=== PATIENT | female | born 1985 | race Caucasian/White ===

== ENCOUNTER 2024-04-24 14:19 | Emergency (ER) | payer OTHER ==
[2024-04-24] MEDS ORDERED: MORPHINE 4 MG/ML SYR ONE (14:52)
[2024-04-24] MEDS ORDERED: ONDANSETRON 4 MG/2 ML VIAL ONE (14:52)
[2024-04-24] MEDS ORDERED: NA CHLORIDE 0.9% 1,000 ML ONE ×2 (14:52→16:11)
[2024-04-24 15:11] LABS: Absolute Lymphocytes (CBC) 1.4 K/uL (0.7-4.9); Absolute Monocytes 0.4 K/uL (0.1-1.3); Absolute Neutrophil 7.2 K/uL (1.8-8.0); Basophils % 0.5 % (0-1.3); Eosinophils % 0.1 % (0-4.4); Hematocrit 46.5 % (36.0-45.0); Hemoglobin 15.7 g/dL (12.0-15.0); Lymphocytes % 15.2 % (15.3-44.8); MCH 30.9 pg (27.0-35.0); MCHC 33.7 g/dL (32.0-36.0); MCV 91.7 fL (80-100); Neutrophils % 80.2 % (41.7-73.7); Platelets 191 thou/uL (152-406); RBC Red Blood Cell Count 5.08 M/uL (3.86-4.86); Red Cell Distribution Width 14.4 % (12.1-15.2)
[2024-04-24 15:24] LABS: Specific Gravity 1.022 (1.005-1.030)
[2024-04-24 15:25] LABS: Specific Gravity 1.022 (1.005-1.030); Sqamous Epithelial <5 /HPF (None Seen); Urine Bacteria None Seen /HPF (<20); Urine Bilirubin NEGATIVE (Negative); Urine Blood 3+ (OVER) (Negative); Urine Clarity Extremely Turbid (Clear); Urine Color Light-Orange (Yellow); Urine Culture Reflex Order REFLEXED; Urine Glucose 4+ (Over) (Negative); Urine Ketones NEGATIVE (Negative); Urine Microscopic Reflex YN ORDER UMIC; Urine Nitrite 2+ (Negative); Urine Protein 4+ (Over) (Negative); Urine RBC >50 /HPF (None Seen); Urine Urobilinogen Normal (Normal); Urine WBC >50 /HPF (<5); Urine WBC Clump Many /HPF (None Seen)
[2024-04-24 15:42] LABS: Albumin 3.1 g/dL (3.4-5.0); Albumin/Globulin Ratio 0.7 (1.1-1.8); Anion Gap 10.5 mEq/L (5.0-15.0); Bilirubin Total 0.7 mg/dL (0.2-1.0); Globulin 4.2 g/dL (2.3-3.5); Potassium 3.5 mEq/L (3.5-5.1); Protein, Total 7.3 g/dL (6.4-8.2)
[2024-04-24] MEDS ORDERED: CEFTRIAXONE 1000 MG/VIAL ONE (16:11)
--- NOTE | 2024-04-24 16:40 | RAD REPORT ---
EXAM DESCRIPTION: CTAbdomen Pelvis W Contrast - 04/24/2024 4:29 pm CLINICAL HISTORY: Abdominal pain. ABD PAIN COMPARISON: <Comparisons> TECHNIQUE: Biphasic CT imaging of the abdomen and pelvis was performed with 100 ml non-ionic IV cont rast. All CT scans are performed using dose optimization technique as appropriate and may include automated exposure control or mA/KV adjustment according to patient size. FINDINGS: The lung bases are clear. The liver is mildly prominent in size with diffuse fatty infiltration. Spleen, pancreas, adrenal glan ds and right kidney are within normal limits. Mild hydronephrosis is seen on the left. No bowel obstruction, free air, free fluid or abscess. The appendix is normal. No evidence of signi ficant lymphadenopathy. No suspicious bony findings. The left ovary appears is enlarged up to 7 cm with multiple cystic structures. IMPRESSION: Enlarged left ovary containing multiple cystic structures. Pelvic ultrasound follow-up i s recommended. This ovarian finding appears to be causing mild left hydronephrosis and hydroureter. Diffuse fatty liver.
[2024-04-24] MEDS ORDERED: KETOROLAC 30 MG/ML INJ ONE (17:16)
[2024-04-24] MEDS ORDERED: INSULIN REGULAR (HUMAN) 100 UNIT/ML ONE (17:17)
--- NOTE | 2024-04-24 17:44 | RAD REPORT ---
EXAM DESCRIPTION: US - Transvaginal Study Probe - 04/24/2024 5:26 pm CLINICAL HISTORY: ABD PAIN Pelvic pain. COMPARISON: <Comparisons> FINDINGS: The uterus is normal in size, shape and echotexture. The uterus measures 6.0 x 3.5 cm The endometrial stripe measures 9 mm, normal. Prior right oophorectomy. The left ovary measures 5.8 x 6.7 x 5.0 cm. Hemorrhagic cysts are present i n the left ovary in totality measuring 4.6 x 4.4 cm. No adnexal masses. Normal Doppler blood flow was demonstrated to the left ovary. No significant pelvic ascites. IMPRESSION: Hemorrhagic cystic lesion left ovary measuring 4.6 cm.Follow-up pelvic ultrasound in 4-6 weeks recommended. No evidence of torsion.
--- NOTE | 2024-04-24 18:50 | EDPHYS ---
Physician Documentation [facility] Name: Mary Bowden Age: 38 yrs Sex: Female : 1985 Arrival Date: 04/24/2024 Time: 14:19 Bed 13 Private MD: ED Physician Vishal Licona HPI: 04/24 14:54 This 38 yrs old Female presents to ER via Ambulatory with complaints of Vomiting. sb4 14:56 The patient presents with abdominal pain in the left lower quadrant. Onset: The sb4 symptoms/episode began/occurred yesterday. The symptoms radiate to pelvis. Associated signs and symptoms: Pertinent positives: nausea, vomiting, and diarrhea. The patient has not experienced similar symptoms in the past. The patient has not recently seen a physician. 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 - Infectious Disease History:: Denies. - Social history:: Smoking status: Patient reports the use of cigarette tobacco products, smokes one-half pack cigarettes per day. ROS: 14:56 Constitutional: Negative for fever, chills, and weight loss, sb4 14:56 Abdomen/GI: Positive for abdominal pain, nausea, vomiting, and diarrhea, 14:56 All other systems are negative, Exam: 14:56 Head/Face: Normocephalic, atraumatic. Eyes: Extra-ocular motions intact. Periorbital sb4 areas with no swelling, redness, or edema. ENT: Mucous membranes moist. Cardiovascular: Regular rate and rhythm with a normal S1 and S2. Respiratory: Lungs have equal breath sounds bilaterally, clear to auscultation and percussion. No rales, rhonchi or wheezes noted. No increased work of breathing, no retractions or nasal flaring. Skin: Warm, dry with normal turgor. Normal color with no rashes, no lesions, and no evidence of cellulitis. MS/ Extremity: Pulses equal, no cyanosis. Neurovascular intact. Full, normal range of motion. 14:56 Constitutional: The patient appears alert, awake, obviously ill, in obvious pain, uncomfortable, 14:56 Abdomen/GI: Inspection: abdomen appears normal, Bowel sounds: normal, Palpation: soft, mild abdominal tenderness, in the left lower quadrant, Vital Signs: 14:43 BP 144 / 96; Pulse 103; Resp 19 S; Temp 98.1(O); Pulse Ox 100% on R/A; Weight 104.33 kg kc6 (R); Height 6 ft. 0 in. (R); Pain 9/10; 16:31 BP 131 / 81; Pulse 98; Resp 17; Pulse Ox 98% on R/A; rs5 17:47 BP 125 / 80; Pulse 94; Resp 17; Pulse Ox 98% on R/A; rs5 18:44 BP 124 / 88; Pulse 93; Resp 17; Temp 98.1; Pulse Ox 98% ; Pain 0/10; bm8 14:43 Body Mass Index 31.19 (104.33 kg, 182.88 cm) kc6 14:43 Pain Scale: Adult kc6 18:44 Pain Scale: Adult bm8 Florina Coma Score: 18:44 Eye Response: spontaneous(4). Motor Response: obeys commands(6). Verbal Response: bm8 oriented(5). Total: 15. MDM: 14:28 Patient medically screened. sb4 17:50 Data reviewed: vital signs, nurses notes, lab test result(s), radiologic studies, and sb4 as a result, I will discharge patient. Care significantly affected by the following chronic conditions: Diabetes. Counseling: I had a detailed discussion with the patient and/or guardian regarding the historical points, exam findings, and any diagnostic results supporting the discharge/admit diagnosis, lab results, radiology results, the need for outpatient follow up, an OB/Gyne specialist, to return to the emergency department if symptoms worsen or persist or if there are any questions or concerns that arise at home. 04/24 14:48 Order name: CBC with Diff; Complete Time: 15:14 sb4 04/24 14:48 Order name: CMP; Complete Time: 15:53 sb4 04/24 14:48 Order name: Lipase; Complete Time: 15:53 sb4 04/24 14:48 Order name: Test, Urine; Complete Time: 15:25 sb4 04/24 14:48 Order name: Urinalysis w/ reflexes; Complete Time: 15:26 sb4 04/24 15:28 Order name: Urine Culture EDTN 04/24 17:51 Order name: Glucose, Ancillary Testing; Complete Time: 17:53 [facility] 04/24 14:48 Order name: CT Abd/Pelvis - IV Contrast Only; Complete Time: 16:41 sb4 04/24 16:42 Order name: Transvaginal Study (probe); Complete Time: 17:45 [facility] 04/24 14:48 Order name: IV Saline Lock; Complete Time: 15:00 sb4 04/24 14:48 Order name: Labs collected and sent; Complete Time: 15:00 sb4 Administered Medications: 15:00 Drug: NS 0.9% IV 1000 ml IV at 1 bolus Per protocol; 1000 mL bolus Route: IV; Rate: 1 kc6 bolus; Site: right antecubital; 15:30 Follow up: Response: No adverse reaction; IV Status: Completed infusion; IV Intake: kc6 1000ml 15:00 Drug: Ondansetron IVP 4 mg IVP once; over 2 minutes Route: IVP; Site: right antecubital;kc6 15:30 Follow up: Response: No adverse reaction; Nausea is decreased; Vomiting decreased kc6 15:00 Drug: morphine IVP or IV 4 mg IVP once over 4 mins Route: IVP; Infused Over: 4 mins; kc6 Site: right antecubital; 15:30 Follow up: Response: No adverse reaction; Pain is decreased; RASS: Alert and Calm (0) kc6 16:00 Drug: NS 0.9% IV 1000 ml IV at 1 bolus Per protocol; 1000 mL bolus Route: IV; Rate: 1 rs5 bolus; Site: right antecubital; 18:35 Follow up: Response: No adverse reaction; IV Status: Completed infusion; IV Intake: bm8 1000ml 16:00 Drug: Rocephin IV 1 grams IV at calculated rate once; Given slow IV push per pharmacy rs5 instructions Route: IV; Rate: calculated rate; Site: right antecubital; 18:35 Follow up: Response: No adverse reaction; IV Status: Completed infusion; IV Intake: [id number] 17:20 Drug: Ketorolac IVP 30 mg IVP once Route: IVP; Site: left antecubital; rs5 18:35 Follow up: Response: No adverse reaction bm8 17:47 Not Given (Physician Discretion): insulin regular human10 units IVP once rs5 Disposition: 20:06 Co-signature as Attending Physician, Vishal Licona MD I reviewed the patient's care rt provided by the Advanced Practice Provider and agree with the diagnosis and treatment plan. Disposition Summary: 04/24/24 18:49 Discharge Ordered Notes: Location: Home sb4 Problem: new sb4 Symptoms: have improved sb4 Condition: Stable sb4 Diagnosis - Hemorrhagic ovarian cyst, left sb4 - UTI/ Urinary tract infection, site not specified sb4 - Type 2 diabetes mellitus with hyperglycemia sb4 Followup: sb4 - With: Lizzie Arshad MD - When: 1 week - Reason: Recheck today's complaints, Re-evaluation by your physician Discharge Instructions: - Discharge Summary Sheet sb4 - Urinary Tract Infection, Adult, [id number] sb4 - Ovarian Cyst, [id number] sb4 Forms: - Antibiotic Education sb4 - Prescription Opioid Use sb4 - Patient Portal Instructions sb4 - Leadership Thank You Letter sb4 - Work release form bm8 Prescriptions: - ondansetron 4 mg Oral Tablet,disintegrating - take 1 tablet ORAL route every 6 hours As needed; 12 tablet; Refills: 0, sb4 Product Selection Permitted - Tramadol 50 mg Oral Tablet - take 1 tablet ORAL route every 8 hours as needed; 12 tablet; Refills: 0, sb4 Product Selection Permitted - cefpodoxime 100 mg Oral Tablet - take 1 tablet ORAL route every 12 hours for 10 days take with food; 20 tablet; sb4 Refills: 0, Product Selection Permitted Signatures: Dispatcher [employer] Brielle Baez RN RN [id number] Sonia Galaviz PA-C PASeema sb4 Vishal Licona MD MD rt Dima Roy RN RN rs5 Luis Fernando Adkins RN bm8
--- NOTE | 2024-04-24 18:50 | ER ---
Nurse's Notes [facility] Name: Mary Bowden Age: 38 yrs Sex: Female : 1985 Arrival Date: 04/24/2024 Time: 14:19 Bed 13 Private MD: Diagnosis: Hemorrhagic ovarian cyst, left;UTI/ Urinary tract infection, site not specified;Type 2 diabetes mellitus with hyperglycemia Presentation: 04/24 14:43 Chief complaint: Patient states: abd pain that radiates to her pelvis since last night kc6 with n/v that started this AM at 0700. Coronavirus screen: At this time, the client does not indicate any symptoms associated with coronavirus-19. Ebola Screen: No symptoms or risks identified at this time. Initial Sepsis Screen: Does the patient meet any 2 criteria? HR > 90 bpm. Does the patient have a suspected source of infection? No. Patient's initial sepsis screen is negative. Risk Assessment: Do you want to hurt yourself or someone else? Patient reports no desire to harm self or others. Onset of symptoms was April 23, 2024. 14:43 Method Of Arrival: Ambulatory kc6 14:43 Acuity: KAILEY 3 kc6 Triage Assessment: 14:46 General: Appears in no apparent distress. uncomfortable, well groomed, well developed, kc6 Behavior is cooperative, crying. Pain: Complains of pain in abdomen and pelvis Pain currently is 9 out of 10 on a pain scale. EENT: No signs and/or symptoms were reported regarding the EENT system. Neuro: Level of Consciousness is awake, alert, obeys commands, Oriented to person, place, time, situation, Appropriate for age. Cardiovascular: Capillary refill < 3 seconds. Respiratory: Airway is patent Trachea midline Respiratory effort is even, unlabored, Respiratory pattern is regular, symmetrical. GI: Reports lower abdominal pain, diarrhea, nausea, vomiting. : No signs and/or symptoms were reported regarding the genitourinary system. Derm: No signs and/or symptoms reported regarding the dermatologic system. Skin is intact, is healthy with good turgor, Skin is dry, Skin is pale, Skin temperature is warm. Musculoskeletal: No signs and/or symptoms reported regarding the musculoskeletal system. Circulation, motion, and sensation intact. Capillary refill < 3 seconds, Range of motion: intact in all extremities. 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 - Infectious Disease History:: Denies. - Social history:: Smoking status: Patient reports the use of cigarette tobacco products, smokes one-half pack cigarettes per day. Screenin:55 [facility] ED Fall Risk Assessment (Adult) History of falling in the last 3 months, kc6 including since admission No falls in past 3 months (0 pts) Confusion or Disorientation No (0 pts) Intoxicated or Sedated No (0 pts) Impaired Gait No (0 pts) Mobility Assist Device Used No (0 pt) Altered Elimination No (0 pt) Score/Fall Risk Level 0 - 2 = Low Risk. Abuse screen: Denies threats or abuse. Denies injuries from another. Nutritional screening: No deficits noted. Tuberculosis screening: No symptoms or risk factors identified. Assessment: 14:54 Reassessment: pt placed in chairs in front of main nurses station. kc6 16:09 Reassessment: pt arrived in room. rs5 16:09 General: Appears in no apparent distress. uncomfortable, Behavior is calm, cooperative. rs5 Pain: Complains of pain in abdomen Pain currently is 7 out of 10 on a pain scale. Quality of pain is described as aching, Is continuous. Neuro: Level of Consciousness is awake, alert, obeys commands, Oriented to person, place, time, situation. Cardiovascular: Patient's skin is warm and dry. Respiratory: Airway is patent Respiratory effort is even, unlabored, Respiratory pattern is regular, symmetrical. GI: Abdomen is round non-distended, Abd is soft and non tender X 4 quads. Patient currently denies nausea. : No signs and/or symptoms were reported regarding the genitourinary system. EENT: No signs and/or symptoms were reported regarding the EENT system. Derm: Skin is intact, Skin is pink, warm \T\ dry. Musculoskeletal: Range of motion: intact in all extremities. 16:10 Reassessment: provider notified pt is experiencing pain. rs5 17:46 Reassessment: Patient and/or family updated on plan of care and expected duration. Pain rs5 level reassessed. Patient is alert, oriented x 3, equal unlabored respirations, skin warm/dry/pink. to bedside for blood sugar check and insuline adm. blood sugar results 291, provider notified. instructed to not adm insuline. 17:47 Reassessment: Patient and/or family updated on plan of care and expected duration. Pain rs5 level reassessed. Patient is alert, oriented x 3, equal unlabored respirations, skin warm/dry/pink. 18:44 Reassessment: Patient appears in no apparent distress at this time. Patient and/or bm8 family updated on plan of care and expected duration. Pain level reassessed. Patient is alert, oriented x 3, equal unlabored respirations, skin warm/dry/pink. Patient denies pain at this time. Patient states feeling better. Patient states symptoms have improved. Vital Signs: 14:43 BP 144 / 96; Pulse 103; Resp 19 S; Temp 98.1(O); Pulse Ox 100% on R/A; Weight 104.33 kg kc6 (R); Height 6 ft. 0 in. (R); Pain 9/10; 16:31 BP 131 / 81; Pulse 98; Resp 17; Pulse Ox 98% on R/A; rs5 17:47 BP 125 / 80; Pulse 94; Resp 17; Pulse Ox 98% on R/A; rs5 18:44 BP 124 / 88; Pulse 93; Resp 17; Temp 98.1; Pulse Ox 98% ; Pain 0/10; bm8 14:43 Body Mass Index 31.19 (104.33 kg, 182.88 cm) kc6 14:43 Pain Scale: Adult kc6 18:44 Pain Scale: Adult bm8 Florina Coma Score: 18:44 Eye Response: spontaneous(4). Motor Response: obeys commands(6). Verbal Response: bm8 oriented(5). Total: 15. ED Course: 14:23 Patient arrived in ED. ra3 14:28 Sonia Galaviz [facility]C [facility] sb4 14:28 James Funes MD is Attending Physician. sb4 14:45 Triage completed. kc6 14:45 Arm band placed on. kc6 14:54 Patient has correct armband on for positive identification. Warm blanket given. kc6 14:57 Vishal Licona MD is Attending Physician. sb4 15:00 Assisted to bathroom. kc6 15:00 Initial lab(s) drawn, by me, sent to lab. Inserted saline lock: 20 gauge in right em1 antecubital area, using aseptic technique. Blood collected. Flushed with 10 mL NS. 15:11 Test, Urine Sent. kc6 15:11 Urinalysis w/ reflexes Sent. kc6 15:18 Brielle Jordan, RN is Primary Nurse. kc6 16:30 CT Abd/Pelvis - IV Contrast Only In Process Unspecified. EDMS 16:32 No provider procedures requiring assistance completed. rs5 17:28 Transvaginal Study (probe) In Process Unspecified. EDMS 18:49 Lizzie Arshad MD is Referral Physician. sb4 19:02 Provided Education on: post er care. bm8 19:02 IV discontinued, intact, bleeding controlled, No redness/swelling at site. Pressure bm8 dressing applied. Administered Medications: 15:00 Drug: NS 0.9% IV 1000 ml IV at 1 bolus Per protocol; 1000 mL bolus Route: IV; Rate: 1 kc6 bolus; Site: right antecubital; 15:30 Follow up: Response: No adverse reaction; IV Status: Completed infusion; IV Intake: kc6 1000ml 15:00 Drug: Ondansetron IVP 4 mg IVP once; over 2 minutes Route: IVP; Site: right antecubital;kc6 15:30 Follow up: Response: No adverse reaction; Nausea is decreased; Vomiting decreased kc6 15:00 Drug: morphine IVP or IV 4 mg IVP once over 4 mins Route: IVP; Infused Over: 4 mins; kc6 Site: right antecubital; 15:30 Follow up: Response: No adverse reaction; Pain is decreased; RASS: Alert and Calm (0) kc6 16:00 Drug: NS 0.9% IV 1000 ml IV at 1 bolus Per protocol; 1000 mL bolus Route: IV; Rate: 1 rs5 bolus; Site: right antecubital; 18:35 Follow up: Response: No adverse reaction; IV Status: Completed infusion; IV Intake: bm8 1000ml 16:00 Drug: Rocephin IV 1 grams IV at calculated rate once; Given slow IV push per pharmacy rs5 instructions Route: IV; Rate: calculated rate; Site: right antecubital; 18:35 Follow up: Response: No adverse reaction; IV Status: Completed infusion; IV Intake: [id number] 17:20 Drug: Ketorolac IVP 30 mg IVP once Route: IVP; Site: left antecubital; rs5 18:35 Follow up: Response: No adverse reaction bm8 17:47 Not Given (Physician Discretion): insulin regular human10 units IVP once rs5 Medication: 16:32 VIS not applicable for this client. rs5 Intake: 15:30 IV: 1000ml; Total: 1000ml. kc6 18:35 IV: 50ml; Total: 1050ml. bm8 18:35 IV: 1000ml; Total: 2050ml. bm8 Outcome: 18:49 Discharge ordered by MD. sb4 19:02 Discharged to home ambulatory, bm8 19:02 Condition: stable 19:02 Discharge instructions given to patient, family, Instructed on discharge instructions, follow up and referral plans. medication usage, safety practices, Demonstrated understanding of instructions, follow-up care, medications, Prescriptions given X 3, 19:03 Patient left the ED. bm8 Signatures: Dispatcher [employer] EDMS Kentrell Arroyo em1 Brielle Jordan, RN RN kc6 Sonia Galaviz PASeema PASeema sb4 Dima Roy, RN RN rs5 Daiana Leach ra3 Luis Fernando Adkins RN RN bm8 Corrections: (The following items were deleted from the chart) 14:55 14:54 Pillow given. kc6 kc6
[2024-04-24 19:18] VITALS: TEMP 98.1
[2024-04-24 19:19] VITALS: O2SAT 98
[2024-04-24 19:21] VITALS: BP 124/88
== END 2024-04-24 19:03 | disposition home or self-care (01) ==
LOC: ER 14:19
DX: N83.202 Unspecified ovarian cyst, left side (principal); N39.0 Urinary tract infection, site not specified; E11.65 Type 2 diabetes mellitus with hyperglycemia; F17.210 Nicotine dependence, cigarettes, uncomplicated
CPT/HCPCS: 87088; 85025; 81001; 87086; 36415; 81025; 82947; 87077; 87186; 83690; 80053; 74177; 76830; 99284; Q9967; J2405; J7030 ×2; J0696

== ENCOUNTER 2024-07-24 06:51 | Observation (INO) | payer OTHER ==
--- OUTSIDE RECORDS SUMMARY | 2024-07-24 06:54 | XMS REPORT | Continuity of Care Document ---
Author Name Unknown Address [address] [facility] [address] thconnect Address [address] [facility] [address] [place] [address] Care Team Providers Care [employer] Name Role Phone ESTEBAN ALMONTE Attending Clinician Unavailable DORY SINGH Attending Clinician UnavailCONY Bronson Attending Clinician Unavailab le Payers Payer Name Policy Type Policy Number Effective Date Expirati on Date Source AEMARIA ALEJANDRA CRAWFORD [facility] [employer] 94 ON 9 [id number] 2024 00:00:00 Encounters Start Date/Time End Date/Time Encounter Type Admission Type Attending Clinicians Care Facility Care Department Encounter ID Source 2024-07-15 00:00:00 2024-07-15 00:00:00 Outpatient ESTEBAN ALMONTE [id number] Nasrin Zazueta 2024-07-03 15:00:00 2024-07-03 15:00:00 Outpatient DORY SINGH [id number] Nasrin Zazueta 2024-05-28 16:30:00 2024-05-28 16:30:00 Outpatient CONY LOWRY [id number] Nasrin Zazueta
[2024-07-24] MEDS ORDERED: ASPIRIN 81 MG CHEWABLE TABLET ONE (07:47)
[2024-07-24] MEDS ORDERED: ONDANSETRON 4 MG/2 ML VIAL ONE ×2 (07:47→15:07)
[2024-07-24] MEDS ORDERED: MORPHINE 4 MG/ML SYR ONE (07:48)
[2024-07-24] MEDS ORDERED: FAMOTIDINE 20 MG/2 ML VIAL IV ONE (07:48)
[2024-07-24] MEDS ORDERED: NA CHLORIDE 0.9% 500 ML ONE ×2 (07:48→14:00)
[2024-07-24 07:49] LABS: Absolute Basophils 0.1 K/uL (0-0.5); Absolute Lymphocytes (CBC) 1.7 K/uL (0.7-4.9); Absolute Monocytes 0.3 K/uL (0.1-1.3); Absolute Neutrophil 4.1 K/uL (1.8-8.0); Basophils % 0.9 % (0-1.3); Eosinophils % 0.7 % (0-4.4); Hematocrit 44.4 % (36.0-45.0); Hemoglobin 15.7 g/dL (12.0-15.0); Lymphocytes % 28.2 % (15.3-44.8); MCH 32.1 pg (27.0-35.0); MCHC 35.3 g/dL (32.0-36.0); MCV 90.9 fL (80-100); MPV 7.5 fL (7.6-11.3); Monocytes % 4.6 % (3.3-12.3); Neutrophils % 65.6 % (41.7-73.7); Nucleated Red Blood Cells % 0.1 % (0-0); Platelets 172 thou/uL (152-406); RBC Red Blood Cell Count 4.88 M/uL (3.86-4.86); Red Cell Distribution Width 13.4 % (12.1-15.2)
[2024-07-24 07:55] LABS: PT Prothrombin Time 10.4 SECONDS (9.4-12.5); Protime INR 0.93
--- NOTE | 2024-07-24 08:04 | RAD REPORT ---
EXAMINATION: ONE VIEW CHEST XR CLINICAL INDICATION: Female, 38 years old.,CHEST PAIN TECHNIQUE: Frontal chest projection is submitted. Examination is limited by patient positioning and t echnique. COMPARISON: No prior exam. FINDINGS: The lungs are mildly hypoinflated and clear. No pneumothorax or sizable effusion. The heart is fritz l in size. Mediastinal contours are unremarkable. IMPRESSION: No acute intrathoracic abnormalities.
[2024-07-24 08:15] LABS: ALT/SGPT 36 U/L (13-56); AST/SGOT 28 U/L (15-37); Albumin 2.8 g/dL (3.4-5.0); Albumin/Globulin Ratio 0.7 (1.1-1.8); Alkaline Phosphatase 60 U/L (45-117); Anion Gap 9.9 mEq/L (5.0-15.0); BUN Blood Urea Nitrogen 14 mg/dL (7-18); Bicarbonate 25 mEq/L (21-32); Bilirubin Direct < 0.2 mg/dL (0-0.2); Bilirubin Indirect, Calculated 0.4 mg/dL (0.2-0.8); Bilirubin Total 0.6 mg/dL (0.2-1.0); Glomerular Filtration Rate 83 ml/min (=/>90); Glucose Level 337 mg/dL (74-106); Lipase 187 U/L (13-75); Magnesium 1.4 mg/dL (1.6-2.4); NT PRO-BNP 243 pg/mL (<125); Potassium 3.9 mEq/L (3.5-5.1); Protein, Total 6.8 g/dL (6.4-8.2); Sodium Level 132 mEq/L (136-145); Troponin High Sensitivity 51.9 pg/mL (<58.9)
[2024-07-24 08:32] LABS: Transitional Epithelial <5 /HPF (None Seen); Urine Bacteria <20 /HPF (<20); Urine Bilirubin NEGATIVE (Negative); Urine Blood 1+ (Negative); Urine Clarity Turbid (Clear); Urine Color Light-Yellow (Yellow); Urine Culture Reflex Order NOT NEEDED; Urine Glucose 4+ (Over) (Negative); Urine Granular Casts 0-5 /LPF (None Seen); Urine Ketones NEGATIVE (Negative); Urine Microscopic Reflex YN ORDER UMIC; Urine Mucus Slight /HPF (None Seen); Urine Nitrite NEGATIVE (Negative); Urine Protein 3+ (Negative); Urine RBC <5 /HPF (None Seen); Urine Urobilinogen Normal (Normal); Urine WBC <5 /HPF (<5)
--- NOTE | 2024-07-24 08:50 | ER ---
Nurse's Notes [facility] Name: Mary Bowden Age: 38 yrs Sex: Female : 1985 Arrival Date: 07/24/2024 Time: 06:51 Bed 8 Private MD: Diagnosis: Chest pain, unspecified;Angina pectoris, unspecified;Essential (primary) hypertension;Hypomagnesemia;Tobacco abuse counseling;Tobacco use;Type 2 diabetes mellitus with hyperglycemia Presentation: 07/24 07:00 Chief complaint: Patient states: CHEST PAIN SINCE LAST NIGHT. Coronavirus screen: At ha1 this time, the client does not indicate any symptoms associated with coronavirus-19. Ebola Screen: No symptoms or risks identified at this time. Initial Sepsis Screen: Does the patient meet any 2 criteria? No. Patient's initial sepsis screen is negative. Does the patient have a suspected source of infection? No. Patient's initial sepsis screen is negative. Risk Assessment: Do you want to hurt yourself or someone else? Patient reports no desire to harm self or others. Onset of symptoms was July 24, 2024. 07:00 Method Of Arrival: Ambulatory ha1 07:00 Acuity: KAILEY 2 ha1 Triage Assessment: 06:55 General: Appears uncomfortable, Behavior is cooperative, anxious, crying. Pain: ha1 Complains of pain in chest Pain currently is 10 out of 10 on a pain scale. Quality of pain is described as pressure, throbbing. Neuro: Level of Consciousness is awake, alert, obeys commands, Oriented to person, place, time, situation. Cardiovascular: Reports chest pain, Capillary refill < 3 seconds Patient's skin is warm and dry. Respiratory: Airway is patent Respiratory effort is even, unlabored, Respiratory pattern is regular, symmetrical. Historical: - Allergies: 07:03 No Known Allergies; ha1 - PMHx: 07:03 Myocardial infarction; ha1 - PSHx: 07:03 right ovary removed; Stented artery; ha1 - Immunization history:: Adult Immunizations up to date. - Infectious Disease History:: Denies. - Social history:: Smoking status: Patient reports the use of cigarette tobacco products, smokes one-half pack cigarettes per day. - Family history:: not pertinent. Screenin:10 [facility] ED Fall Risk Assessment (Adult) History of falling in the last 3 months, aa5 including since admission No falls in past 3 months (0 pts) Confusion or Disorientation No (0 pts) Intoxicated or Sedated No (0 pts) Impaired Gait No (0 pts) Mobility Assist Device Used No (0 pt) Altered Elimination No (0 pt) Score/Fall Risk Level 0 - 2 = Low Risk Oriented to surroundings, Maintained a safe environment, Educated pt \T\ family on fall prevention, incl call for assistance when getting out of bed. Abuse screen: Denies threats or abuse. Nutritional screening: No deficits noted. Tuberculosis screening: No symptoms or risk factors identified. Assessment: 07:10 General: Appears comfortable, Behavior is calm, cooperative. Pain: Complains of pain in aa5 mid-sternal area Pain does not radiate. Pain currently is 10 out of 10 on a pain scale. Quality of pain is described as sharp, Pain began this morning Is intermittent. Neuro: Level of Consciousness is awake, alert, obeys commands, Oriented to person, place, time, situation. Cardiovascular: Reports chest pain, Heart tones S1 S2 present Rhythm is sinus rhythm. Respiratory: Airway is patent Respiratory effort is even, unlabored, Respiratory pattern is regular, symmetrical. GI: Abdomen is round non-distended, Abd is soft and non tender X 4 quads. Patient currently denies nausea, vomiting. : No signs and/or symptoms were reported regarding the genitourinary system. EENT: No signs and/or symptoms were reported regarding the EENT system. Derm: Skin is pink, warm \T\ dry. Musculoskeletal: Range of motion: intact in all extremities. 07:48 Reassessment: Pt to restroom ambulatory prior to medication administration. . aa5 07:52 Reassessment: Patient is alert, oriented x 3, equal unlabored respirations, skin aa5 warm/dry/pink. 09:25 Reassessment: Patient is alert, oriented x 3, equal unlabored respirations, skin aa5 warm/dry/pink. Patient states symptoms have not improved. MD notified. . 09:52 Reassessment: Patient is alert, oriented x 3, equal unlabored respirations, skin aa5 warm/dry/pink. 10:43 Reassessment: Patient is alert, oriented x 3, equal unlabored respirations, skin aa5 warm/dry/pink. Vital Signs: 07:00 BP 160 / 108; Pulse 102; Resp 18 S; Temp 97.2(T); Pulse Ox 98% on R/A; Weight 108.86 ha1 kg; Height 6 ft. 1 in. ; Pain 10/10; 08:20 BP 145 / 95; Pulse 94; Resp 18 S; Pulse Ox 97% on R/A; aa5 10:06 BP 127 / 81; Pulse 85; Resp 14 S; Temp 97.9(TE); Pulse Ox 98% on R/A; aa5 07:00 Body Mass Index 31.66 (108.86 kg, 185.42 cm) ha1 07:00 Pain Scale: Adult [facility] ED Course: 06:54 Patient arrived in ED. gm2 07:03 Triage completed. ha1 07:08 Riana Thompson, ABBY is Primary Nurse. aa5 07:09 Nadeem Nye MD is Attending Physician. butch 07:10 Patient has correct armband on for positive identification. Bed in low position. Call aa5 light in reach. Side rails up X2. Client placed on continuous cardiac and pulse oximetry monitoring. NIBP monitoring applied. monitoring manager on. Pulse ox on. NIBP on. 07:10 Arm band placed on. aa5 07:40 Initial lab(s) drawn, by me, sent to lab. Inserted saline lock: 20 gauge in right aa5 antecubital area, using aseptic technique. Blood collected. Flushed with 10 mL NS. 07:50 XRAY Chest (1 view) In Process Unspecified. EDMS 08:00 Urine collected: clean catch specimen, sent to lab. aa5 08:31 No provider procedures requiring assistance completed. aa5 08:31 Patient maintains SpO2 saturation greater than 95% on room air. aa5 08:49 Eron Funes MD is Hospitalizing Provider. butch 10:43 Patient admitted, IV remains in place. aa5 Administered Medications: 07:32 CANCELLED (Duplicate Order): GI Cocktail with - (maaloxsuspension 30 ml, butch lidocaine mucous membrane liquid 2 % 20 ml, phenobarbital-dptnozctwb46 ml) PO once 07:48 Drug: Aspirin PO Chewable Tablet 324 mg PO once; 81 mg tablets x 4 Route: PO; aa5 09:52 Follow up: Response: No adverse reaction aa5 07:50 Drug: morphine IVP or IV 4 mg IVP once over 4 mins Route: IVP; Infused Over: 4 mins; aa5 Site: right antecubital; 08:00 Follow up: Response: No adverse reaction aa5 07:52 Drug: Famotidine IVP 20 mg IVP once; dilute with 10 mL 0.9% NaCl; give over 2 minutes aa5 Route: IVP; Site: right antecubital; 08:00 Follow up: Response: No adverse reaction aa5 07:52 Drug: NS 0.9% IV 500 ml IV at bolus once; to be given as a bolus over 30 minutes Route: aa5 IV; Rate: bolus; Site: right antecubital; 08:22 Follow up: IV Status: Completed infusion; IV Intake: 500ml 07:52 Drug: Ondansetron IVP 4 mg IVP once; over 2 minutes Route: IVP; Site: right antecubital;aa5 08:00 Follow up: Response: No adverse reaction aa5 09:19 CANCELLED (Other Intervention Used): insulin [id number] units Sub-Q once la1 09:25 Drug: Magnesium Sulfate IVPB 1 grams IVPB once over 1 hrs Route: IVPB; Infused Over: 1 aa5 hrs; Site: right antecubital; 10:25 Follow up: Response: No adverse reaction; IV Status: Completed infusion aa5 09:25 Drug: Clopidogrel PO 150 mg PO once Route: PO; aa5 10:25 Follow up: Response: No adverse reaction aa5 09:25 Drug: Enoxaparin Sub-Q 1 mg/kg Sub-Q once {Note: administered 100mg.} Route: Sub-Q; aa5 Site: right lower abdomen; 10:25 Follow up: Response: No adverse reaction aa5 09:25 Drug: Metoprolol PO 50 mg PO once Route: PO; aa5 10:25 Follow up: Response: No adverse reaction aa5 09:52 Drug: Insulin Regular Human IVP 7 units IVP once {Co-Signature: ss (Laurie Braxton aa5 RN).} Route: IVP; Site: right antecubital; 10:25 Follow up: Response: No adverse reaction aa5 09:52 Drug: Nitroglycerin Sublingual 0.4 mg Sublingual once Route: Sublingual; aa5 10:25 Follow up: Response: No adverse reaction aa5 Medication: 08:31 VIS not applicable for this client. aa5 Intake: 08:22 IV: 500ml; Total: 500ml. aa5 Outcome: 08:50 Decision to Hospitalize by Provider. butch 10:43 Admitted to Tele accompanied by tech, via wheelchair, with chart, Other Report was aa5 faxed to admitting nurse. 10:43 Condition: stable 10:43 Instructed on the need for admit, Demonstrated understanding of instructions, 10:43 Patient left the ED. aa5 Signatures: Dispatcher [employer] EDNadeem Quiñonez MD MD cha Calderon, Audri, RN RN aa5 Alondra Smith RN RN ha1 Lizette Ramos 2 Terry Crawford [facility] Laurie Braxton RN ss Corrections: (The following items were deleted from the chart) 10:46 09:25 Reassessment: Patient is alert, oriented x 3, equal unlabored respirations, skin aa5 warm/dry/pink. aa5
--- NOTE | 2024-07-24 08:50 | EDPHYS ---
Physician Documentation [facility] Name: Mary Bowden Age: 38 yrs Sex: Female : 1985 Arrival Date: 07/24/2024 Time: 06:51 Bed 8 Private MD: ED Physician Nadeem Nye HPI: 07/24 07:52 This 38 yrs old Female presents to ER via Ambulatory with complaints of Chest butch Pain. 07:52 The patient or guardian reports chest pain that is located primarily in the substernal butch area. The pain does not radiate. Associated signs and symptoms: Pertinent positives: None. The chest pain is described as sharp. Duration: The patient or guardian reports multiple episodes, that have now resolved. Modifying factors: The symptoms are alleviated by nothing. the symptoms are aggravated by nothing. Severity of pain: At its worst the pain was mild in the emergency department the pain is unchanged. The patient has not experienced similar symptoms in the past. Historical: - Allergies: 07:03 No Known Allergies; ha1 - PMHx: 07:03 Myocardial infarction; ha1 - PSHx: 07:03 right ovary removed; Stented artery; ha1 - Immunization history:: Adult Immunizations up to date. - Infectious Disease History:: Denies. - Social history:: Smoking status: Patient reports the use of cigarette tobacco products, smokes one-half pack cigarettes per day. - Family history:: not pertinent. ROS: 07:52 Constitutional: Negative for fever, chills, and weight loss, Eyes: Negative for injury, butch pain, redness, and discharge, ENT: Negative for injury, pain, and discharge, Neck: Negative for injury, pain, and swelling, Respiratory: Negative for shortness of breath, cough, wheezing, and pleuritic chest pain, Abdomen/GI: Negative for abdominal pain, nausea, vomiting, diarrhea, and constipation, Back: Negative for injury and pain, : Negative for injury, bleeding, discharge, and swelling, MS/Extremity: Negative for injury and deformity, Skin: Negative for injury, rash, and discoloration, Neuro: Negative for headache, weakness, numbness, tingling, and seizure, Psych: Negative for depression, anxiety, suicide ideation, homicidal ideation, and hallucinations, Allergy/Immunology: Negative for hives, rash, and allergies, Endocrine: Negative for neck swelling, polydipsia, polyuria, polyphagia, and marked weight changes, Hematologic/Lymphatic: Negative for swollen nodes, abnormal bleeding, and unusual bruising, 07:52 Cardiovascular: Positive for chest pain, 07:52 MS/extremity: Negative for acute changes, Exam: 07:52 Constitutional: This is a well developed, well nourished patient who is awake, alert, butch and in no acute distress. Head/Face: Normocephalic, atraumatic. Eyes: Pupils equal round and reactive to light, extra-ocular motions intact. Lids and lashes normal. Conjunctiva and sclera are non-icteric and not injected. Cornea within normal limits. Periorbital areas with no swelling, redness, or edema. ENT: Nares patent. No nasal discharge, no septal abnormalities noted. Tympanic membranes are normal and external auditory canals are clear. Oropharynx with no redness, swelling, or masses, exudates, or evidence of obstruction, uvula midline. Mucous membranes moist. Neck: Trachea midline, no thyromegaly or masses palpated, and no cervical lymphadenopathy. Supple, full range of motion without nuchal rigidity, or vertebral point tenderness. No Meningismus. Cardiovascular: Regular rate and rhythm with a normal S1 and S2. No gallops, murmurs, or rubs. Normal PMI, no JVD. No pulse deficits. Respiratory: Lungs have equal breath sounds bilaterally, clear to auscultation and percussion. No rales, rhonchi or wheezes noted. No increased work of breathing, no retractions or nasal flaring. Abdomen/GI: Soft, non-tender, with normal bowel sounds. No distension or tympany. No guarding or rebound. No evidence of tenderness throughout. Back: No spinal tenderness. No costovertebral tenderness. Full range of motion. Skin: Warm, dry with normal turgor. Normal color with no rashes, no lesions, and no evidence of cellulitis. MS/ Extremity: Pulses equal, no cyanosis. Neurovascular intact. Full, normal range of motion. Neuro: Awake and alert, GCS 15, oriented to person, place, time, and situation. Cranial nerves II-XII grossly intact. Motor strength 5/5 in all extremities. Sensory grossly intact. Cerebellar exam normal. Normal gait. Psych: Awake, alert, with orientation to person, place and time. Behavior, mood, and affect are within normal limits. 07:52 Chest/axilla: Inspection: normal, Palpation: tenderness, that is mild, of the mid-sternal area, Axilla: are normal, Breasts: are normal, 07:52 ECG was reviewed by the Attending Physician. Vital Signs: 07:00 BP 160 / 108; Pulse 102; Resp 18 S; Temp 97.2(T); Pulse Ox 98% on R/A; Weight 108.86 ha1 kg; Height 6 ft. 1 in. ; Pain 10/10; 08:20 BP 145 / 95; Pulse 94; Resp 18 S; Pulse Ox 97% on R/A; aa5 10:06 BP 127 / 81; Pulse 85; Resp 14 S; Temp 97.9(TE); Pulse Ox 98% on R/A; aa5 07:00 Body Mass Index 31.66 (108.86 kg, 185.42 cm) ha1 07:00 Pain Scale: Adult ha1 MDM: 07:09 Medical Screening Exam initiated butch 07:57 HEART Score: History: Moderately Suspicious (1), ECG: Non specific repolarization butch disturbance / LBTB / PM (1), Age: < or = 45 years (0), Risk Factors: > or = 3 Risk factors for atherosclerotic disease (2), [Hypercholesterolemia] [Hypertension] [+ Family HX] [Obesity] Troponin: < or = 1 x Normal Limit (0). BEATRICE Risk Score: 1 - Three or more CAD risk factors, 1- Known CAD, 1 - ASA use in past 7 days, 1 - Recent [<24hrs] Severe Angina, TOTAL SCORE = 4. Data reviewed: vital signs, nurses notes, lab test result(s), EKG, radiologic studies, plain films. Consideration of Admission/Observation Escalation of care including admission/observation considered. I considered the following discharge prescriptions or medication management in the emergency department Medications were administered in the Emergency Department. See MAR. Independent interpretation of the following test(s) in the Emergency Department EKG: See my EKG interpretation above. Test considered but Not performed: Ultrasound no 2 d echo. Counseling: I had a detailed discussion with the patient and/or guardian regarding the historical points, exam findings, and any diagnostic results supporting the discharge/admit diagnosis, the presence of at least one elevated blood pressure reading (>120/80) during this emergency department visit, lab results, radiology results, the need for outpatient follow up. 07/24 07:10 Order name: Basic Metabolic Panel; Complete Time: 08:45 [facility] 07/24 07:10 Order name: CBC with Diff; Complete Time: 08:45 [facility] 07/24 07:10 Order name: LFT's; Complete Time: 08:45 [facility] 07/24 07:10 Order name: Magnesium; Complete Time: 08:45 [facility] 07/24 07:10 Order name: NT PRO-BNP; Complete Time: 08:45 [facility] 07/24 07:10 Order name: PT-INR; Complete Time: 08:45 [facility] 07/24 07:10 Order name: Troponin HS; Complete Time: 08:45 [facility] 07/24 07:10 Order name: Lipase; Complete Time: 08:45 [facility] 07/24 07:10 Order name: Urinalysis w/ reflexes; Complete Time: 08:45 [facility] 07/24 07:11 Order name: UDS; Complete Time: 09:17 [facility] 07/24 07:32 Order name: D-Dimer; Complete Time: 09:17 [facility] 07/24 07:48 Order name: Troponin High Sensitivity: 10 am [facility] 07/24 07:10 Order name: XRAY Chest (1 view); Complete Time: 08:45 [facility] 07/24 07:52 Order name: EKG; Complete Time: 07:52 [facility] 07/24 07:10 Order name: Cardiac monitoring; Complete Time: 07:11 [facility] 07/24 07:10 Order name: EKG - Nurse/Tech; Complete Time: 07:44 [facility] 07/24 07:10 Order name: IV Saline Lock; Complete Time: 07:44 [facility] 07/24 07:10 Order name: Labs collected and sent; Complete Time: 07:44 [facility] 07/24 07:10 Order name: O2 Per Protocol; Complete Time: 07:11 [facility] 07/24 07:10 Order name: O2 Sat Monitoring; Complete Time: 07:11 [facility] EC:52 Rate is 85 beats/min. Rhythm is regular. QRS Roggen is Normal. VT interval is normal. QRS butch interval is normal. QT interval is normal. No Q waves. T waves are Normal. Clinical impression: NSR w/ Non-specific ST/T Changes and No evidence of ischemia. Interpreted by me. Reviewed by me. Administered Medications: 07:32 CANCELLED (Duplicate Order): GI Cocktail with - (maaloxsuspension 30 ml, butch lidocaine mucous membrane liquid 2 % 20 ml, phenobarbital-vbkehhykzp02 ml) PO once 07:48 Drug: Aspirin PO Chewable Tablet 324 mg PO once; 81 mg tablets x 4 Route: PO; aa5 09:52 Follow up: Response: No adverse reaction aa5 07:50 Drug: morphine IVP or IV 4 mg IVP once over 4 mins Route: IVP; Infused Over: 4 mins; aa5 Site: right antecubital; 08:00 Follow up: Response: No adverse reaction aa5 07:52 Drug: Famotidine IVP 20 mg IVP once; dilute with 10 mL 0.9% NaCl; give over 2 minutes aa5 Route: IVP; Site: right antecubital; 08:00 Follow up: Response: No adverse reaction aa5 07:52 Drug: NS 0.9% IV 500 ml IV at bolus once; to be given as a bolus over 30 minutes Route: aa5 IV; Rate: bolus; Site: right antecubital; 08:22 Follow up: IV Status: Completed infusion; IV Intake: 500ml aa5 07:52 Drug: Ondansetron IVP 4 mg IVP once; over 2 minutes Route: IVP; Site: right antecubital;aa5 08:00 Follow up: Response: No adverse reaction aa5 09:19 CANCELLED (Other Intervention Used): insulin units Sub-Q once la1 09:25 Drug: Magnesium Sulfate IVPB 1 grams IVPB once over 1 hrs Route: IVPB; Infused Over: 1 aa5 hrs; Site: right antecubital; 10:25 Follow up: Response: No adverse reaction; IV Status: Completed infusion aa5 09:25 Drug: Clopidogrel PO 150 mg PO once Route: PO; aa5 10:25 Follow up: Response: No adverse reaction aa5 09:25 Drug: Enoxaparin Sub-Q 1 mg/kg Sub-Q once {Note: administered 100mg.} Route: Sub-Q; aa5 Site: right lower abdomen; 10:25 Follow up: Response: No adverse reaction aa5 09:25 Drug: Metoprolol PO 50 mg PO once Route: PO; aa5 10:25 Follow up: Response: No adverse reaction aa5 09:52 Drug: Insulin Regular Human IVP 7 units IVP once {Co-Signature: ss (Laurie Braxton aa5 RN).} Route: IVP; Site: right antecubital; 10:25 Follow up: Response: No adverse reaction aa5 09:52 Drug: Nitroglycerin Sublingual 0.4 mg Sublingual once Route: Sublingual; aa5 10:25 Follow up: Response: No adverse reaction aa5 Disposition Summary: 07/24/24 08:50 Hospitalization Ordered Notes: Hospitalization Status: Observation butch Provider: Eron Funes cha Location: Telemetry/MedSurg (observation) butch Condition: Fair butch Problem: new butch Symptoms: have improved butch Bed/Room Type: Standard [facility] Room Assignment: 412(07/24/24 09:10) eb Diagnosis - Chest pain, unspecified butch - Angina pectoris, unspecified butch - Essential (primary) hypertension butch - Hypomagnesemia butch - Tobacco abuse counseling butch - Tobacco use butch - Type 2 diabetes mellitus with hyperglycemia butch Discharge Instructions: - Discharge Summary Sheet butch - Nonspecific Chest Pain, Adult butch - Hypertension, Adult butch - Nonspecific Chest Pain, Adult, [id number] butch - Hypertension, Adult, [id number] butch - How to Take Your Blood Pressure, [id number] butch - Aspirin and Your Heart butch - Managing Your Hypertension butch Forms: - Medication Reconciliation Form butch - SBAR form butch - Leadership Thank You Letter [facility] Prescriptions: - Pepcid 20 mg Oral tablet - take 1 tablet ORAL route every 12 hours for 21 days; 42 tablet; Refills: 0, butch Product Selection Permitted Signatures: Dispatcher [employer] Nadeem Tran MD MD cha Calderon, Audri, RN RN aa5 Terry Crawford, KIRK-C FIELD CASE MANAGER-Cla1 Lauren Calixto Heidy RN RN ha1 Laurie Braxton RN ss Corrections: (The following items were deleted from the chart) 07:10 07:10 BASIC METABOLIC PANEL+C.LAB.BRZ ordered. EDMS EDMS 07:10 07:10 CBC+H.LAB.BRZ ordered. EDMS EDMS 07:10 07:10 HEPATIC FUNCTION+C.LAB.BRZ ordered. EDMS EDMS 07:10 07:10 MAGNESIUM+C.LAB.BRZ ordered. EDMS EDMS 07:10 07:10 PROBNP+C.LAB.BRZ ordered. EDMS EDMS 07:10 07:10 PROTIME (+INR)+COAG.LAB.BRZ ordered. EDMS EDMS 07:10 07:10 Troponin High Sensitivity+C.LAB.BRZ ordered. EDMS EDMS 07:10 07:10 LIPASE+C.LAB.BRZ ordered. EDMS EDMS 07:10 07:10 Urinalysis+U.LAB.BRZ ordered. EDMS EDMS 07:10 07:10 Chest Single View+RAD.RAD.BRZ ordered. EDMS EDMS 07:32 07:26 GI Cocktail with - (Maalox PO 30 ml, Lidocaine Mucous Membrane 2 % 20 butch ml, Phenobarbital-Belladonna PO 10 ml) PO once ordered. [facility] 07:49 07:49 Troponin High Sensitivity+C.LAB.BRZ ordered. EDMS EDMS 09:10 08:50 butch eb 09:19 09:17 Insulin Glargine Sub-Q 30 units Sub-Q once ordered. [facility] la1 09:25 07:52 EKG - Nurse/Tech ordered. [facility] aa5
[2024-07-24 09:09] LABS: Barbiturates NEGATIVE (NEGATIVE); Benzodiazepines NEGATIVE (NEGATIVE); Cocaine NEGATIVE (NEGATIVE); METHAMPHETAM NEGATIVE (NEGATIVE); Methadone NEGATIVE (NEGATIVE); Opiates NEGATIVE (NEGATIVE); Phencyclidine NEGATIVE (NEGATIVE); THC Cannibis NEGATIVE (NEGATIVE)
[2024-07-24] MEDS ORDERED: METOPROLOL TAR 50 MG TAB ONE (09:17)
[2024-07-24] MEDS ORDERED: CLOPIDOGREL 75 MG TABLET ONE ×3 (09:17→15:32)
[2024-07-24] MEDS ORDERED: ENOXAPARIN 100 MG/ML SYR SQ ONE (09:17)
[2024-07-24] MEDS ORDERED: MAGNESIUM SULFATE 1 gm IVPB 1 GM/100 ML BAG IV ONE (09:18)
[2024-07-24] MEDS ORDERED: INSULIN REGULAR (HUMAN) 100 UNIT/ML ONE (09:44)
[2024-07-24] MEDS ORDERED: NITROGLYCERIN 0.4 MG/TAB SL ONE (09:44)
[2024-07-24 11:02] VITALS: BMI 31.6
[2024-07-24] MEDS ORDERED: ONDANSETRON 4 MG/2 ML VIAL IV PRN (11:03)
[2024-07-24] MEDS: INSULIN REGULAR (HUMAN) 100 UNIT/ML SQ SCH (12:10)
[2024-07-24 12:25] LABS: HDL Cholesterol 25 mg/dL (40-60)
[2024-07-24 12:37] LABS: LDL, Direct 38 mg/dL (100-129)
--- NOTE | 2024-07-24 13:31 | P.CNS ---
Date of Consult: 07/24/24 Chief Complaint: chest pain History of Present Illness: Patient with PMH of CAD s/p PCI 1 year ago, presented with chest pain, pressure in nature that started yesterday, mid chest, no radiation, no aggravating or relieving factors. Allergies fluconazole [From Diflucan] Allergy (Verified 07/24/24 11:03) Itching/Hives/Rash Influenza Virus Vaccines Adverse Reaction (Verified 07/24/24 11:03) Shortness of breath Home medications list reviewed: Yes Home Medications: Empagliflozin [Jardiance] 25 mg PO DAILY 07/24/24 RX: Gabapentin 100 mg PO TID 07/24/24 RX: Metoprolol Tartrate 50 mg PO BID 07/24/24 RX: Rosuvastatin Calcium 20 mg PO BEDTIME 07/24/24 - Past Medical/Surgical History Diabetic: Yes -: DM -: HLD -: Neuropathy -: Right Ovary and Fallopin tube removed -: Heart Stent 2022 - Social History Smoking Status: Current every day smoker Alcohol use: No CD- Drugs: No Caffeine use: Yes Place of Residence: Home Review of Systems 10-point ROS is otherwise unremarkable Physical Examination Temp Pulse Resp BP Pulse Ox 98.3 F 85 20 135/89 96 07/24/24 12:00 07/24/24 12:00 07/24/24 12:00 07/24/24 12:00 07/24/24 12:00 General: Alert, In no apparent distress HEENT: Atraumatic, PERRLA, Mucous membr. moist/pink, EOMI, Sclerae nonicteric Neck: Supple, 2+ carotid pulse no bruit, No LAD, Without JVD or thyroid abnormality Respiratory: Clear to auscultation bilaterally, Normal air movement Cardiovascular: Regular rate/rhythm, Normal S1 S2 Gastrointestinal: Normal bowel sounds, No tenderness Musculoskeletal: No tenderness Integumentary: No rashes Neurological: Normal gait, Normal speech, Normal tone, Normal affect Lymphatics: No axilla or inguinal lymphadenopathy Laboratory Data (last 24 hrs) 07/24/24 07/24/24 07/24/24 07:40 07:40 07:40 WBC 6.20 Hgb 15.7 H Hct 44.4 Plt Count 172 PT 10.4 INR 0.93 Sodium 132 L Potassium 3.9 BUN 14 Creatinine 0.92 Glucose 337 H Magnesium 1.4 L Total Bilirubin 0.6 AST 28 ALT 36 Alkaline Phosphatase 60 Lipase 187 H - Problems (1) CAD (coronary artery disease) Current Visit: Yes Status: Acute Plan: with mild leak in troponin and history of PCI Coronary angiogram ASA 81 mg daily for life Lipitor 80 mg daily (2) HTN (hypertension) Current Visit: Yes Status: Acute Plan: continue metoprolol (3) HLD (hyperlipidemia) Current Visit: Yes Status: Acute Plan: very high TG Lipitor 80 mg daily Vascepa 2 gm po BID repeat lipid panel in 4 weeks.
[2024-07-24] MEDS ORDERED: LIDOCAINE 1% 20 ML MDV ONE (13:46)
[2024-07-24] MEDS ORDERED: HEPA 1000U/500MLS 2,000 UNIT/1,000 ML BAG IV ONE (13:46)
[2024-07-24] MEDS ORDERED: HEPARIN 10,000 UNIT/10 ML VIAL IV ONE (13:46)
[2024-07-24] MEDS ORDERED: FENTANYL CITR 100 MCG/2 ML ONE (13:47)
[2024-07-24] MEDS ORDERED: ASPIRIN 325 MG TAB ONE (13:47)
[2024-07-24] MEDS ORDERED: TICAGRELOR 90 MG TABLET PO ONE (13:47)
[2024-07-24] MEDS ORDERED: ATROPINE SULF 1 MG/10 ML SYR IV ONE (13:47)
[2024-07-24] MEDS ORDERED: HEPARIN 5000 UNIT/ML 1 ML VIAL ONE (13:47)
[2024-07-24] MEDS: GABAPENTIN 100 MG CAP PO SCH (14:00)
[2024-07-24] MEDS ORDERED: D10W 125 ML IV PRN (14:04)
[2024-07-24] MEDS ORDERED: GLUCAGON 1 MG/VIAL IM PRN (14:04)
--- NOTE | 2024-07-24 15:54 | P.HP ---
Certification for Inpatient Patient admitted to: Observation With expected LOS: <2 Midnights Patient will require the following post-hospital care: None Practitioner: I am a practitioner with admitting privileges, knowledge of patient current condition, hospital course, and medical plan of care. Services: Services provided to patient in accordance with Admission requirements found in Title 42 Section 412.3 of the Code of Federal Regulations Patient History Date of Service: 07/24/24 Reason for admission: chest pain History of Present Illness: 38-year-old female with history of hyperlipidemia, hypertension, CAD with previous stent to the LAD, dli-xbojjya-vquregdtm diabetes presents the emergency department chief complaint of chest pain. She reports that heart catheterization about 1 year ago when she had a heart attack and a stent was placed in her LAD. She has been having stabbing-like chest pain radiating to the left side of her chest since last night intermittently with no other associated signs or symptoms. She was evaluated in the emergency department initial high- sensitivity troponin was 51.9, repeat trending up to 85.0. Her blood was also lipemic per lab results. Patient to be admitted for further evaluation and management of chest pain. Allergies fluconazole [From Diflucan] Allergy (Verified 07/24/24 11:03) Itching/Hives/Rash Influenza Virus Vaccines Adverse Reaction (Verified 07/24/24 11:03) Shortness of breath Home Medications: Empagliflozin [Jardiance] 25 mg PO DAILY 07/24/24 Gabapentin 100 mg PO TID 07/24/24 Metoprolol Tartrate 50 mg PO BID 07/24/24 Rosuvastatin Calcium 20 mg PO BEDTIME 07/24/24 - Past Medical/Surgical History Has patient received pneumonia vaccine in the past: No Diabetic: Yes -: DM -: HLD -: Neuropathy -: Right Ovary and Fallopin tube removed -: Heart Stent 2022 - Social History Smoking Status: Current every day smoker Alcohol use: No CD- Drugs: No Caffeine use: Yes Place of Residence: Home Review of Systems 10-point ROS is otherwise unremarkable Cardiovascular: Chest Pain Physical Examination - Vital Signs Temperature: 98.3 F Blood Pressure: 132/87 Pulse: 90 Respirations: 16 Pulse Ox (%): 96 - Physical Exam General: Alert, In no apparent distress, Oriented x3 HEENT: Atraumatic, PERRLA, Mucous membr. moist/pink Neck: Supple, 2+ carotid pulse no bruit, No LAD Respiratory: Clear to auscultation bilaterally, Normal air movement Cardiovascular: Regular rate/rhythm, Normal S1 S2 Gastrointestinal: Normal bowel sounds, No tenderness Musculoskeletal: No tenderness Integumentary: No rashes Neurological: Normal speech, Normal strength at 5/5 x4 extr, Normal tone, Normal affect - Studies Laboratory Data (last 24 hrs) 07/24/24 07/24/24 07/24/24 07:40 07:40 07:40 WBC 6.20 Hgb 15.7 H Hct 44.4 Plt Count 172 PT 10.4 INR 0.93 Sodium 132 L Potassium 3.9 BUN 14 Creatinine 0.92 Glucose 337 H Magnesium 1.4 L Total Bilirubin 0.6 AST 28 ALT 36 Alkaline Phosphatase 60 Lipase 187 H Assessment and Plan - Plan Assessment: Chest pain rule out ACShistory of CAD with previous stent Diabetes mellitus type 4aaf-unbzguf-skudgptwv with hyperglycemia Uncontrolled hypertension Dyslipidemia/hypertriglyceridemia Tobacco use disorder Plan: Chest pain rule out ACShistory of CAD with previous stent Received therapeutic Lovenox in ED Troponin trending up Plan for coronary angiogram this afternoon Diabetes mellitus type 9xvs-ohavajv-drburckzd with hyperglycemia ACHS Accu-Chek, sliding scale insulin A1c pending Uncontrolled hypertension Continue metoprolol, titrate as needed Dyslipidemia/hypertriglyceridemia Changed to atorvastatin 80 mg at bedtime, Vascepa 2 g twice daily Tobacco use disorder Counseled on need for cessation DVT PPX: Lovenox Code status: Full Discharge Plan: Home Plan to discharge in: 24 Hours - Advance Directives Does patient have a Living Will: No Does patient have a Durable POA for Healthcare: No - Code Status/Comfort Care Code Status Assessed: Yes (Full code) Critical Care: No Time Spent Managing Pts Care (In Minutes): 54
[2024-07-24] MEDS: ACETAMINOPHEN 325 MG TABLET PO ONE (15:58)
[2024-07-24] MEDS: ACETAMINOPHEN 325 MG TABLET ONE (16:01)
[2024-07-24] MEDS: icosapent ethyL 1 GM CAP PO SCH (17:00)
[2024-07-24] MEDS: CLOPIDOGREL 75 MG TABLET PO ONE (18:00)
[2024-07-24] MEDS: MORPHINE 2 MG/ML SYR IV PRN (20:06)
[2024-07-24] MEDS: METOPROLOL TAR 50 MG TAB PO SCH (20:06)
[2024-07-24] MEDS: ATORVASTATIN 80 MG TAB PO SCH (20:06)
[2024-07-24] MEDS ORDERED: TICAGRELOR 90 MG TABLET PO SCH (21:00)
[2024-07-24] MEDS ORDERED: ATORVASTATIN 40 MG TAB PO SCH (21:00)
[2024-07-24] MEDS: HEPARIN/D5W 25,000 UNIT/500 ML BAG IV SCH (21:44)
[2024-07-25 00:20] VITALS: O2SAT 97
--- NOTE | 2024-07-25 02:31 | OP ---
Date of Procedure: 07/24/2024 Surgeon: Zachary Curiel Procedures Performed: 1.Left heart catheterization. 2.Selective coronary angiogram. 3.Percutaneous transluminal coronary angioplasty of the left anterior descending in-stent restenosis . 4.Percutaneous coronary intervention of the mid left anterior descending with Synergy 3.[address] ug-eluting stent. Indication For Procedures: Icf-ME-pmlvikjtm SC, the patient with history of stent of the LAD, medica tion noncompliance and she was not taking her Brilinta. Access: Right radial, closed by TR band. Sedation Time: 40 minutes with 50 of fentanyl. Complications: None. Estimated Blood Loss: Less than 50 cc. Description Of Procedure: After risks, benefits, and alternatives were explained to the patient, the patient agreed to proceed with the procedure and signed informed consent. 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 Time-out was performed. Sedation was ad ministered. Next, right radial access was obtained using ultrasound-guided micropuncture technique. 5-Kinyarwanda [place] catheter was advanced to the LV cavity. LVEDP was obtained. Pullback did not show a ny gradient. Same catheter was used for selective angiogram of the left and right coronary systems. The catheter was later exchanged for an XB LAD 3.0 mm guide. Heparin was administered. ACT was the rapeutic. Next, Runthrough wire was passed across the LAD stent, pre-dilated the LAD stent with an NC 2.5 and 3.5, and [place] 3.25 mm balloon. Angiogram shows significant distal LAD disease, so we p re-dilated the distal LAD with an NC 2.25 mm balloon. Then, repeat angiogram shows distal edge for t he stent dissection, so it was covered with Synergy 3.0 x 16 mm drug-eluting stent that is overlapped with the proximal LAD stent. Final angiogram shows BEATRICE-3 flow. At the end of procedure, catheter was removed over a J-wire. Sheath was removed. TR band was applied. Hemostasis achieved, and the p atient was moved back to recovery in stable condition. Findings: 1.Left main: Normal. 2.LAD: Ostial to proximal stent 100% occluded. PTCA done. Mid LAD with 70% hazy lesions, PCI done with Synergy 3.0 x 16 mm drug-eluting stent. This overlapped with the proximal LAD stent. Mid mild luminal irregularities and distal diffuse heavy atherosclerosis. 3.Left circumflex with a proximal 50% disease, then continues as large OM1 and OM2. 4.RCA with a proximal 30% disease and then mild luminal irregularities. Assessment And Plan: 1.Significant 100% in-stent restenoses of the left anterior descending stent due to medication nonco mpliance. Percutaneous transluminal coronary angioplasty done. 2.Significant mid left anterior descending disease, status post percutaneous coronary intervention w ith Synergy 3.0 x 16 that is overlapped with old stent. 3.Significant distal left anterior descending disease. Percutaneous transluminal coronary angioplas ty was done. We will continue medical therapy. No option for stenting. 4.Pdvj-nu-rjexbmbq proximal left circumflex disease and mild right coronary artery disease. Outpati ent stress test. Plan: Aspirin 81 mg daily for life, Brilinta 180 x1 was given in the lab[employer] wrecking [employer] salvaging, Plavix 300 to be load ed tonight and then continue Plavix 75 mg daily for 12 months. Continue aggressive medical treatment for CAD. LEELA/MOON Voice ID: [id number] Report ID: [id number]
[2024-07-25 06:38] LABS: Absolute Lymphocytes (CBC) 1.9 K/uL (0.7-4.9); Absolute Monocytes 0.4 K/uL (0.1-1.3); Absolute Neutrophil 4.2 K/uL (1.8-8.0); Basophils % 0.4 % (0-1.3); Eosinophils % 0.7 % (0-4.4); Hematocrit 40.6 % (36.0-45.0); MCH 31.9 pg (27.0-35.0); MCHC 34.6 g/dL (32.0-36.0); MCV 92.1 fL (80-100); MPV 7.8 fL (7.6-11.3); Neutrophils % 63.9 % (41.7-73.7); Nucleated Red Blood Cells % 0.2 % (0-0); Platelets 144 thou/uL (152-406); RBC Red Blood Cell Count 4.41 M/uL (3.86-4.86); Red Cell Distribution Width 13.5 % (12.1-15.2)
[2024-07-25 06:58] LABS: Anion Gap 7.5 mEq/L (5.0-15.0)
[2024-07-25 07:01] LABS: Potassium 3.5 mEq/L (3.5-5.1)
[2024-07-25] MEDS ORDERED: ENOXAPARIN 40 MG/0.4 ML SQ SCH (09:00)
[2024-07-25] MEDS: ASPIRIN EC 81 MG TAB PO SCH (11:07)
[2024-07-25] MEDS: CLOPIDOGREL 75 MG TABLET PO SCH (11:08)
[2024-07-25] MEDS: INSULIN REGULAR (HUMAN) 100 UNIT/ML IV ONE (11:49)
[2024-07-25 12:38] VITALS: BP 125/85; TEMP 98.1
--- NOTE | 2024-07-25 14:41 | P.DS ---
Admission Date: 07/24/24 Discharge Date: 07/25/24 Disposition: ROUTINE DISCHARGE Discharge Condition: GOOD Reason for Admission: chest pain Consultations: Cardiology Procedures: [facility] with PCI/angioplasty Brief History of Present Illness: 38-year-old female with history of hyperlipidemia, hypertension, CAD with previous stent to the LAD, ohi-xovxtal-wirlbgigr diabetes presents the emergency department chief complaint of chest pain. She reports that heart catheterization about 1 year ago when she had a heart attack and a stent was placed in her LAD. She has been having stabbing-like chest pain radiating to the left side of her chest since last night intermittently with no other associated signs or symptoms. She was evaluated in the emergency department initial high-sensi tivity troponin was 51.9, repeat trending up to 85.0. Her blood was also lipemic per lab results. Patient to be admitted for further evaluation and management of chest pain. Hospital Course: Assessment: Chest pain rule out ACShistory of CAD with previous stent Diabetes mellitus type 5ahs-nxithch-fbyaqycez with hyperglycemia Uncontrolled hypertension Dyslipidemia/hypertriglyceridemia Tobacco use disorder Patient was admitted to the hospital for chest pain with elevated troponin. She underwent coronary angiogram and was found to have a occluded stent in her LAD, she underwent angioplasty of the stent that was present and had a new stent placed distally to this. She reports she had not been compliant with the Brilinta as it was too expensive and not covered by her insurance which likely contributed to the stent occlusion. Patient will be switched to Plavix at discharge, counseled to take baby aspirin daily for the rest of her life. Additionally patient was noted to be hyperglycemic on admission to the hospital, her A1c was 10.4. She stated her PCP is working on getting her on Ozempic. She will need further titration of her medications as an outpatient. lipid panel was also obtained, triglycerides were 1811, cholesterol 202, LDL 38, HDL 25. As per recommended by cardiology she was switched to atorvastatin 80 mg at bedtime and Vascepa 2 g twice daily. She will need to follow-up with both her PCP and cardiology outpatient Counseled to stop smoking as well. Vital Signs/Physical Exam: Temp Pulse Resp BP Pulse Ox 98.1 F 103 H 20 125/85 97 07/25/24 12:00 07/25/24 12:00 07/25/24 12:00 07/25/24 12:00 07/25/24 12:00 General: Alert, In no apparent distress, Oriented x3 HEENT: Atraumatic, PERRLA Neck: Supple, JVD not distended Respiratory: Clear to auscultation bilaterally, Normal air movement Cardiovascular: Regular rate/rhythm, Normal S1 S2 Gastrointestinal: Normal bowel sounds, No tenderness Musculoskeletal: No tenderness Integumentary: No rashes Neurological: Normal speech, Normal affect Laboratory Data at Discharge: WBC 6.60 thou/uL (4.3-10.9) 07/25/24 06:26 Hgb 14.0 g/dL (12.0-15.0) D 07/25/24 06:26 Hct 40.6 % (36.0-45.0) 07/25/24 06:26 Plt Count 144 thou/uL (152-406) L 07/25/24 06:26 PT 10.4 SECONDS (9.4-12.5) 07/24/24 07:40 INR 0.93 07/24/24 07:40 APTT 33.9 SECONDS (24.3-36.9) 07/25/24 10:38 Sodium 133 mEq/L (136-145) L 07/25/24 06:26 Potassium 3.5 mEq/L (3.5-5.1) 07/25/24 06:26 BUN 12 mg/dL (7-18) 07/25/24 06:26 Creatinine 0.86 mg/dL (0.55-1.02) 07/25/24 06:26 Glucose 288 mg/dL (74-106) H 07/25/24 06:26 Magnesium 1.4 mg/dL (1.6-2.4) L 07/24/24 07:40 Total Bilirubin 0.6 mg/dL (0.2-1.0) 07/24/24 07:40 AST 28 U/L (15-37) 07/24/24 07:40 ALT 36 U/L (13-56) 07/24/24 07:40 Alkaline Phosphatase 60 U/L (45-117) 07/24/24 07:40 Triglycerides Cancelled 07/24/24 15:44 Cholesterol Cancelled 07/24/24 15:44 LDL Cholesterol Direct 38 mg/dL (100-129) L 07/24/24 10:39 HDL Cholesterol Cancelled 07/24/24 15:44 Cholesterol/HDL Ratio Cancelled 07/24/24 15:44 Lipase 187 U/L (13-75) H 07/24/24 07:40 Home Medications: Empagliflozin [Jardiance] 25 mg PO DAILY 07/24/24 Gabapentin 100 mg PO TID 07/24/24 Metoprolol Tartrate 50 mg PO BID 07/24/24 Atorvastatin Calcium [Lipitor] 80 mg PO BEDTIME #30 tab 07/25/24 Clopidogrel Bisulfate [Plavix*] 75 mg PO DAILY #30 tab 07/25/24 icosapent ethyL [Icosapent Ethyl] 2 gm PO BID #120 cap 07/25/24 New Medications: icosapent ethyL [Icosapent Ethyl] 2 gm PO BID #120 cap Atorvastatin Calcium [Lipitor] 80 mg PO BEDTIME #30 tab Clopidogrel Bisulfate [Plavix*] 75 mg PO DAILY #30 tab Physician Discharge Instructions: Patient was admitted to the hospital for chest pain with elevated troponin. She underwent coronary angiogram and was found to have a occluded stent in her LAD, she underwent angioplasty of the stent that was present and had a new stent placed distally to this. She reports she had not been compliant with the Brilinta as it was too expensive and not covered by her insurance which likely contributed to the stent occlusion. Patient will be switched to Plavix at discharge, counseled to take baby aspirin daily for the rest of her life. Additionally patient was noted to be hyperglycemic on admission to the hospital, her A1c was 10.4. She stated her PCP is working on getting her on Ozempic. She will need further titration of her medications as an outpatient. lipid panel was also obtained, triglycerides were 1811, cholesterol 202, LDL 38, HDL 25. As per recommended by cardiology she was switched to atorvastatin 80 mg at bedtime and Vascepa 2 g twice daily. She will need to follow-up with both her PCP and cardiology outpatient Counseled to stop smoking as well. Diet: AHA Activity: Ad cruz Followup: Lasha Neri DO [Primary Care Provider] - 1 Week Zachary Curiel MD [ACTIVE - CAN ADMIT] - 1-2 Weeks Time spent managing pt's care (in minutes): 40
[2024-07-26] MEDS ORDERED: ENOXAPARIN 40 MG/0.4 ML SQ SCH (09:00)
--- NOTE | 2024-07-27 12:05 | EKG ---
Test Date: 2024-07-24 Test Time: 07:24:19 Biztalk Developer: RAJIV MEASUREMENT RESULTS: Intervals: Rate: 85 RI: 170 QRSD: 98 QT: 356 QTc: 423 [place]: P: 59 RI: 170 QRS: 61 T: 78 INTERPRETIVE STATEMENTS: Normal sinus rhythm Septal infarct, age undetermined Abnormal ECG No previous ECG available for comparison Electronically Signed On 07-27-24 12:02:17 ICE SELLER by Zachary Curiel
== END 2024-07-25 13:14 | disposition home or self-care (01) ==
LOC: ER 06:51 → ERHOLD 09:04 → 4TH 10:01
PROVIDERS: ADMIT Hospitalist; ATTEND Hospitalist
PROC: 027034Z Dilation of Coronary Artery, One Artery with Drug-eluting Intraluminal Device, Percutaneous Approach (ICD-10-PCS; principal; 2024-07-24)
PROC: 4A023N7 Measurement of Cardiac Sampling and Pressure, Left Heart, Percutaneous Approach (ICD-10-PCS; 2024-07-24)
PROC: B2111ZZ Fluoroscopy of Multiple Coronary Arteries using Low Osmolar Contrast (ICD-10-PCS; 2024-07-24)
DX: T82.855A Stenosis of coronary artery stent, initial encounter (principal); I25.82 Chronic total occlusion of coronary artery; I25.10 Atherosclerotic heart disease of native coronary artery without angina pectoris; I10 Essential (primary) hypertension; E78.5 Hyperlipidemia, unspecified; I25.2 Old myocardial infarction; E11.65 Type 2 diabetes mellitus with hyperglycemia; E11.40 Type 2 diabetes mellitus with diabetic neuropathy, unspecified; E78.1 Pure hyperglyceridemia; E83.42 Hypomagnesemia; R79.89 Other specified abnormal findings of blood chemistry; Z91.148 Patient's other noncompliance with medication regimen for other reason; F17.210 Nicotine dependence, cigarettes, uncomplicated; Z71.6 Tobacco abuse counseling; Z79.84 Long term (current) use of oral hypoglycemic drugs; Z79.899 Other long term (current) drug therapy; Z88.7 Allergy status to serum and vaccine; Z88.8 Allergy status to other drugs, medicaments and biological substances
CPT/HCPCS: 96365; 93005; 85025 ×2; 81001; 80048 ×2; 36415 ×2; 83721; 83735; 85610; 80061; 82947 ×5; 85379; 80076; 85730 ×4; 83036; 84484 ×4; 83690; 83880; 80307; 71045; 96375; 96372; 99285; 92928; 93458; J1644; J3475; J1650; J2003; J3010; J2270; J2405 ×2; G0378 ×4; J7040 ×2; J0461

== ENCOUNTER 2024-11-24 11:19 | Emergency (ER) | payer OTHER ==
--- OUTSIDE RECORDS SUMMARY | 2024-11-24 11:22 | XMS REPORT | Continuity of Care Document ---
Author Name Unknown Address [address] [place] [id number] [facility] Address [address] [place] [address] [address] [place] [address] Care Team Providers Care Robot Designer Name Role Phone ESTEBAN ALMONTE Attending Clinician Unavailable DORY SINGH Attending Clinician CONY Pagan Attending Clinician Unavailab mae Payers Payer Name Policy Type Policy Number Effective Date Expirati on Date Source AETNA MP [facility] 5 O PECAN HULLER 94 [place] 9 [id number] 2024 00:00:00 Problems Condition Name Condition Details Condition Category Status Onset Date Resolution Date Last Treatment Date Treating Clinician Comments Source Hyperchole sterolemia Hyperchole sterolemia Problem Active 3-06 00:00: 00 [facility] 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 Problem Active 3-06 00:00: 00 [facility] Pelvic and perineal pain Pelvic and Perineal Pain Problem Active 3-06 00:00: 00 [facility] Cyst of left ovary Cyst of Left Ovary Problem Active 2-12 00:00: 00 [facility] Type 2 diabetes mellitus Type 2 Diabetes Mellitus Problem Active 2-11 00:00: 00 [facility] Mixed hyperlipid emia Mixed Hyperlipid emia Problem Active 2-11 00:00: 00 [facility] History of myocardial infarction History of Myocardial Infarction Problem Active 2-11 00:00: 00 [facility] Social History Smoking Status Start Date Stop Date Source Heavy Tobacco Smoker [facility] Medications Ordered Medication Name Filled Medication Name Start Date Stop Date Current Medication? Ordering Clinician Indication Dosage Frequency Signature (SIG) Comments Components Source atorvastati n 80 mg tablet TAKE 1 TABLET BY MOUTH AT BEDTIME atorvastati n 80 mg tablet TAKE 1 TABLET BY MOUTH AT BEDTIME No atorvastat in 80 mg tablet TAKE 1 TABLET BY MOUTH AT BEDTIME [facility] clopidogrel 75 mg tablet TAKE 1 TABLET BY MOUTH EVERY DAY clopidogrel 75 mg tablet TAKE 1 TABLET BY MOUTH EVERY DAY No clopidogre l 75 mg tablet TAKE 1 TABLET BY MOUTH EVERY DAY [facility] gabapentin 100 mg capsule TAKE 1 CAPSULE (100 MG TOTAL) BY MOUTH IN THE MORNING AND IN THE EVENING gabapentin 100 mg capsule TAKE 1 CAPSULE (100 MG TOTAL) BY MOUTH IN THE MORNING AND IN THE EVENING No gabapentin 100 mg capsule TAKE 1 CAPSULE (100 MG TOTAL) BY MOUTH IN THE MORNING AND IN THE EVENING [facility] icosapent ethyl 1 gram capsule TAKE 2 CAPSULES BY MOUTH TWICE A DAY WITH FOOD SWALLOW WHOLE, DO NOT CHEW, OPEN, DISSOLVE, OR CRUSH icosapent ethyl 1 gram capsule TAKE 2 CAPSULES BY MOUTH TWICE A DAY WITH FOOD SWALLOW WHOLE, DO NOT CHEW, OPEN, DISSOLVE, OR CRUSH No icosapent ethyl 1 gram capsule TAKE 2 CAPSULES BY MOUTH TWICE A DAY WITH FOOD SWALLOW WHOLE, DO NOT CHEW, OPEN, DISSOLVE, OR CRUSH [facility] Jardiance 25 mg tablet TAKE 1 TABLET BY MOUTH EVERY MORNING Jardiance 25 mg tablet TAKE 1 TABLET BY MOUTH EVERY MORNING No Jardiance 25 mg tablet TAKE 1 TABLET BY MOUTH EVERY MORNING [facility] metoprolol tartrate 50 mg tablet TAKE 1 TABLET (50 MG TOTAL) BY MOUTH IN THE MORNING AND IN THE EVENING metoprolol tartrate 50 mg tablet TAKE 1 TABLET (50 MG TOTAL) BY MOUTH IN THE MORNING AND IN THE EVENING No metoprolol tartrate 50 mg tablet TAKE 1 TABLET (50 MG TOTAL) BY MOUTH IN THE MORNING AND IN THE EVENING [facility] Vital Signs Vital Name Observation Time Observation Value Comments S ource BP Diastolic 2024-10-13 00:00:00 82 mm[Hg] [facility] BMI (Body Mass Index) 2024-10-13 00:00:00 32.9 kg/m2 [facility] Height 2024-10-13 00:00:00 71 [in_i] [facility] Body Weight 2024-10-13 00:00:00 236.2 [facility]lb_av[facility] Systolic 2024-10-13 00:00:00 119 mm[Hg] [facility] ia Medical Procedures Procedure Date / Time Performed Performing Clinicia n Source MRI, pelvis, w/wo contrast 2024-11-05 00:00:00 [facility] US TRANSVAGINAL 2024-10-22 00:00:00 [facility] Placement of Stent in Pulmonary Artery 2024-07-03 00:00:00 [facility] Oophorectomy 2001-09-02 00:00:00 [facility] M edical Encounters Start Date/Time End Date/Time Encounter Type Admission Type Attending [facility] Care Department Encounter ID Source 2024-11-05 00:00:00 2024-11-05 00:00:00 CANDIDO CandelariaP: [address], [place] [address] , Ph. [facility] - GC_[email or web address]_Jessica Avendaño* [id number] [facility] 2024-10-22 00:00:00 2024-10-22 00:00:00 Lizzie Arshad MD: [address], [place] [address] , Ph. [facility] GC_[email or web address]_Jessica Avendaño* [id number] [facility] 2024-10-13 00:00:00 2024-10-13 00:00:00 KIRK Artis: [address], [place] [address] , Ph. [facility] GC_[email or web address]_Jessica Avendaño* [id number] [facility] 2024-07-15 00:00:00 2024-07-15 00:00:00 Outpatient ESTEBAN ALMONTE [id number] Nasrin Zazueta 2024-07-03 15:00:00 2024-07-03 15:00:00 Outpatient DORY SINGH [id number] Nasrin Zazueta 2024-05-28 16:30:00 2024-05-28 16:30:00 Outpatient CONY LOWRY [id number] Nasrin Zazueta
[2024-11-24] MEDS ORDERED: methocarbamoL 500 MG TAB ONE (12:26)
[2024-11-24] MEDS ORDERED: ACETAMINOPHEN 500 MG TAB ONE (12:26)
[2024-11-24] MEDS ORDERED: KETOROLAC 30 MG/ML INJ ONE (12:26)
--- NOTE | 2024-11-24 14:26 | ER ---
Nurse's Notes [facility] Name: Mary Bowden Age: 39 yrs Sex: Female : 1985 Arrival Date: 11/24/2024 Time: 11:19 Bed 10 Private MD: Diagnosis: Contusion of right ankle Presentation: 11/24 11:45 Chief complaint: Patient states: dropped a cast iron skillet on her right ankle today iw at work. Coronavirus screen: At this time, the client does not indicate any symptoms associated with coronavirus-19. Risk Assessment: Do you want to hurt yourself or someone else? Patient reports no desire to harm self or others. Onset of symptoms was November 24, 2024. 11:45 Method Of Arrival: Ambulatory iw 11:45 Acuity: KAILEY 4 iw 14:37 Ebola Screen: No symptoms or risks identified at this time. Initial Sepsis Screen: Does bp the patient meet any 2 criteria? No. Patient's initial sepsis screen is negative. Does the patient have a suspected source of infection? No. Patient's initial sepsis screen is negative. Triage Assessment: 14:21 General: Appears in no apparent distress. Behavior is cooperative, appropriate for age, bp anxious. Pain: Complains of pain in right ankle. EENT: No deficits noted. Neuro: No deficits noted. Cardiovascular: No deficits noted. Respiratory: No deficits noted. GI: No signs and/or symptoms were reported involving the gastrointestinal system. : No signs and/or symptoms were reported regarding the genitourinary system. Derm: No deficits noted. Historical: - Allergies: 11:46 tramadol; iw 11:46 Diflucan; iw 11:46 flu vacine; iw - PMHx: 11:46 Myocardial infarction; iw - PSHx: 11:46 right ovary removed; Stented artery; iw - Immunization history:: Adult Immunizations up to date. - Infectious Disease History:: Denies. - Social history:: Smoking status: unknown. Screenin:23 [facility] ED Fall Risk Assessment (Adult) History of falling in the last 3 months, bp including since admission No falls in past 3 months (0 pts) Confusion or Disorientation No (0 pts) Intoxicated or Sedated No (0 pts) Impaired Gait No (0 pts) Mobility Assist Device Used No (0 pt) Altered Elimination No (0 pt) Score/Fall Risk Level 0 - 2 = Low Risk Oriented to surroundings. Abuse screen: Denies threats or abuse. Denies injuries from another. Nutritional screening: No deficits noted. Tuberculosis screening: No symptoms or risk factors identified. Assessment: 11:45 General: Appears uncomfortable, Behavior is cooperative. Pain: Complains of pain in iw right leg and right ankle. Neuro: Level of Consciousness is awake, alert, obeys commands, Oriented to person, place, time, situation, Moves all extremities. Cardiovascular: Patient's skin is warm and dry. Respiratory: Respiratory effort is even, unlabored, Respiratory pattern is regular, symmetrical. Musculoskeletal: Range of motion: limited in right ankle. 12:45 Reassessment: Patient appears in no apparent distress at this time. Patient and/or iw family updated on plan of care and expected duration. Pain level reassessed. Patient is alert, oriented x 3, equal unlabored respirations, skin warm/dry/pink. Vital Signs: 11:45 BP 127 / 78; Pulse 90; Resp 16; Temp 98.1; Pulse Ox 98% ; Weight 101.15 kg; Height 6 iw ft. 0 in. ; Pain 8/10; 12:22 BP 120 / 86; Pulse 59; Resp 16; Pulse Ox 98% on R/A; iw 11:45 Body Mass Index 30.24 (101.15 kg, 182.88 cm) iw 11:45 Pain Scale: Adult iw ED Course: 11:22 Patient arrived in ED. al6 11:23 Joseph Crawford MD is Attending Physician. ec2 11:45 Claudette Nelson, RN is Primary Nurse. iw 11:46 Triage completed. iw 11:47 Arm band placed on. iw 13:22 Ankle Right 3 View XRAY In Process Unspecified. EDMS 14:23 Patient has correct armband on for positive identification. bp 14:27 Patient did not have IV access during this emergency room visit. iw 14:36 No provider procedures requiring assistance completed. Jose Maria wrap to right ankle. bp 14:37 Provided Education on: na. bp Administered Medications: 12:33 Drug: Ketorolac IM 30 mg IM once Route: IM; Site: right ventrogluteal; iw 14:36 Follow up: Response: No adverse reaction bp 12:33 Drug: Acetaminophen PO 1000 mg PO once Route: PO; iw 14:36 Follow up: Response: No adverse reaction bp 12:33 Drug: Methocarbamol PO 500 mg PO once Route: PO; iw 14:36 Follow up: Response: No adverse reaction bp Medication: 14:37 VIS not applicable for this client. bp Outcome: 14:26 Discharge ordered by . ec2 14:36 Discharged to home ambulatory, bp 14:36 Condition: stable 14:36 Discharge instructions given to patient, Instructed on discharge instructions, follow up and referral plans. medication usage, Demonstrated understanding of instructions, follow-up care, medications, Prescriptions given X 1, 14:37 Patient left the ED. bp Signatures: Dispatcher [employer] EDClaudette Davis RN RN iw Ambrocio Sharma RN RN bp Joseph Crawford MD MD ec2 Paloma Rai Corrections: (The following items were deleted from the chart) 14: 12:22 Reassessment: Patient appears in no apparent distress at this time. Patient iw and/or family updated on plan of care and expected duration. Pain level reassessed. pt states his abd pain is resolved but still feeling a bit queasy and he had diarrhea Patient denies pain at this time. iw
--- NOTE | 2024-11-24 14:26 | EDPHYS ---
Physician Documentation [facility] Name: Mary Bowden Age: 39 yrs Sex: Female : 1985 Arrival Date: 11/24/2024 Time: 11:19 Bed 10 Private MD: ED Physician Joseph Crawford HPI: 11/24 11:51 This 39 yrs old Female presents to ER via Ambulatory with complaints of Ankle ec2 Injury. 11:51 Patient arrives today for right ankle injury. He dropped a heavy object on the right ec2 ankle. Complaining of pain with ambulation now. Has not taken any medications for pain at this time.. Historical: - Allergies: 11:46 tramadol; iw 11:46 Diflucan; iw 11:46 flu vacine; iw - PMHx: 11:46 Myocardial infarction; iw - PSHx: 11:46 right ovary removed; Stented artery; iw - Immunization history:: Adult Immunizations up to date. - Infectious Disease History:: Denies. - Social history:: Smoking status: unknown. ROS: 11:51 Constitutional: as per hpi ec2 Exam: 11:51 Constitutional: GEN: NAD Head: atraumatic Eyes: EOMI Ears: External ears are ec2 normal. CV: regular rate LUNGS: no respiratory distress ABD: non-distended SKIN: no evidence of rashes MSK: Right lateral malleolus with TTP, scant amounts of swelling appreciated, no deformity noted, intact distal neurovascular status appreciated. Vital Signs: 11:45 BP 127 / 78; Pulse 90; Resp 16; Temp 98.1; Pulse Ox 98% ; Weight 101.15 kg; Height 6 iw ft. 0 in. ; Pain 8/10; 12:22 BP 120 / 86; Pulse 59; Resp 16; Pulse Ox 98% on R/A; iw 11:45 Body Mass Index 30.24 (101.15 kg, 182.88 cm) iw 11:45 Pain Scale: Adult iw MDM: 11:29 Medical Screening Exam initiated ec2 11:51 Data reviewed: vital signs, nurses notes. ED course: Patient arrives today for right ec2 ankle injury. Examination yields MSK findings as above. Will obtain radiograph and treat the patient's pain. Suspect contusion versus possible fracture, low suspicion for dislocation given mechanism.. 14:25 ED course: Ankle x-ray independently reviewed and interpreted by me, shows no bony ec2 fracture. Will discharge home per return precautions given.. 11/24 11:47 Order name: Ankle Right 3 View XRAY ec2 11/24 14:26 Order name: Jose Maria Wrap; Complete Time: 14:36 ec2 Administered Medications: 12:33 Drug: Ketorolac IM 30 mg IM once Route: IM; Site: right ventrogluteal; iw 14:36 Follow up: Response: No adverse reaction bp 12:33 Drug: Acetaminophen PO 1000 mg PO once Route: PO; iw 14:36 Follow up: Response: No adverse reaction bp 12:33 Drug: Methocarbamol PO 500 mg PO once Route: PO; iw 14:36 Follow up: Response: No adverse reaction bp Disposition Summary: 11/24/24 14:26 Discharge Ordered Notes: Location: Home ec2 Condition: Stable ec2 Diagnosis - Contusion of right ankle ec2 Followup: ec2 - With: Private Physician - When: - Reason: Re-evaluation by your physician Discharge Instructions: - Discharge Summary Sheet ec2 - Ankle Sprain ec2 Forms: - Work release form ec2 - Medication Reconciliation Form ec2 - Antibiotic Education ec2 - Prescription Opioid Use ec2 - Patient Portal Instructions ec2 - Leadership Thank You Letter ec2 Prescriptions: - methocarbamol 500 mg Oral tablet - take 1 tablet ORAL route 4 times per day; 20 tablet; Refills: 0, Product ec2 Selection Permitted Signatures: Dispatcher [employer] Claudette Franz RN RN iw Peltier, Brian, RN RN Joseph Fischer MD MD ec2 Corrections: (The following items were deleted from the chart) 11:47 11:47 Ankle Right 3 View+[email or web address] ordered. CARSON BYRD
[2024-11-24 14:42] VITALS: TEMP 98.1; O2SAT 98
[2024-11-24 14:43] VITALS: BP 120/86
--- NOTE | 2024-11-24 14:43 | RAD REPORT ---
EXAMINATION: XR Ankle Right 3 View CLINICAL INDICATION: Female, 39 years old. [facility] MA[facility] r ankle injury Bed Name: [facility] TECHNIQUE: 3 view radiographs of the right ankle were obtained. COMPARISON: No prior exam. FINDINGS: No bone or joint abnormality seen. Small calcaneal spur. Enthesopathy at the Achilles tendo n attachment. Vascular calcifications. IMPRESSION: No acute osseous abnormalities. Chronic findings as above.
== END 2024-11-24 14:37 | disposition home or self-care (01) ==
LOC: ER 11:19
DX: S90.01XA Contusion of right ankle, initial encounter (principal)
CPT/HCPCS: 96372; 99284

== ENCOUNTER 2024-12-27 13:00 | Emergency (ER) | payer OTHER ==
--- OUTSIDE RECORDS SUMMARY | 2024-12-27 13:04 | XMS REPORT | Continuity of Care Document ---
Author Name Unknown Address [address] [place] [address] [address] [place] [address] 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 94 ON 9 [id number] 2024 00:00:00 Problems Condition Name Condition Details [...] TAKE 1 TABLET BY MOUTH AT BEDTIME [facility] clopidogrel 75 mg tablet TAKE 1 TABLET BY MOUTH EVERY DAY clopidogrel 75 mg tablet TAKE 1 TABLET BY MOUTH EVERY DAY No clopidogre l 75 mg tablet TAKE 1 TABLET BY MOUTH EVERY DAY [facility] gabapentin 100 mg capsule TAKE 1 CAPSULE (100 MG TOTAL) BY MOUTH IN THE MORNING AND IN THE EVENING gabapentin 100 mg capsule TAKE 1 CAPSULE (100 MG TOTAL) BY MOUTH IN THE MORNING AND IN THE EVENING No gabapentin 100 mg capsule TAKE 1 CAPSULE (100 MG TOTAL) BY MOUTH IN THE MORNING AND IN THE EVENING [facility] icosapent ethyl 1 gram capsule TAKE 2 [...] DO NOT CHEW, OPEN, DISSOLVE, OR CRUSH [facility] Jardiance 25 mg tablet TAKE 1 TABLET BY MOUTH EVERY MORNING Jardiance 25 mg tablet TAKE 1 TABLET BY MOUTH EVERY MORNING No Jardiance 25 mg tablet TAKE 1 TABLET BY MOUTH EVERY MORNING [facility] metoprolol tartrate 50 mg tablet TAKE 1 TABLET (50 MG TOTAL) BY MOUTH IN THE MORNING AND IN THE EVENING metoprolol tartrate 50 mg tablet TAKE 1 TABLET (50 MG TOTAL) BY MOUTH IN THE MORNING AND IN THE EVENING No metoprolol tartrate 50 mg tablet TAKE 1 TABLET (50 MG TOTAL) BY MOUTH IN THE MORNING AND IN THE EVENING [facility] Vital Signs Vital Name Observation Time Observation Value Comments S ource BP Diastolic 2024-10-13 00:00:00 82 mm[Hg] [facility] BMI (Body Mass Index) 2024-10-13 00:00:00 32.9 kg/m2 [facility] Height 2024-10-13 00:00:00 71 [in_i] [facility] Body Weight 2024-10-13 00:00:00 236.2 [lb_av] [facility] BP Systolic 2024-10-13 00:00:00 119 mm[Hg] [facility] Procedures Procedure Date / Time Performed Performing Clinicia n Source MRI, pelvis, w/wo contrast 2024-11-05 00:00:00 [facility] US TRANSVAGINAL 2024-10-22 00:00:00 [facility] Placement of Stent in Pulmonary Artery 2024-07-03 00:00:00 [facility] Oophorectomy 2001-09-02 00:00:00 Jarret M edical Encounters Start Date/Time End Date/Time Encounter Type Admission Type Attending [facility] Facility Care Department Encounter ID Source 2024-11-05 00:00:00 2024-11-05 00:00:00 CANDIDO CandelariaP: [address], [address], [place] [address] , Ph. [facility] - GC_GCBZW_Jessica Avendaño* [id number] [facility] 2024-10-22 00:00:00 2024-10-22 00:00:00 Lizzie Arshad MD: [address], [place] [address] , Ph. [facility] GC_GCBZW_Jessica Avendaño* [id number] [facility] 2024-10-13 00:00:00 2024-10-13 00:00:00 KIRK Artis: [address], [place] [address] , Ph. [facility] GC_GCBZW_Jessica Avendaño* [id number] [facility] 2024-07-15 00:00:00 2024-07-15 00:00:00 Outpatient ESTEBAN ALMONTE [id number] Nasrin Zazueta 2024-07-03 15:00:00 2024-07-03 15:00:00 Outpatient DORY SINGH [id number] Nasrin Zazueta 2024-05-28 16:30:00 2024-05-28 16:30:00 Outpatient CONY LOWRY [id number] Nasrin Zazueta
--- NOTE | 2024-12-27 14:17 | RAD REPORT ---
EXAMINATION: ONE VIEW CHEST XR CLINICAL INDICATION: Chest pain;Cough TECHNIQUE: Frontal chest projection is submitted. Examination is limited by patient positioning and t echnique. COMPARISON: 07/24/2024 FINDINGS: Nonspecific peribronchial thickening without focal consolidation could represent a viral or inflammat ory process. The heart is upper limit of normal in size. No displaced fractures identified.
[2024-12-27] MEDS ORDERED: NA CHLORIDE 0.9% 1,000 ML ONE (15:12)
[2024-12-27] MEDS ORDERED: ASPIRIN 81 MG CHEWABLE TABLET ONE (15:12)
[2024-12-27 15:35] LABS: Absolute Basophils 0.1 K/uL (0-0.5); Absolute Lymphocytes (CBC) 1.8 K/uL (0.7-4.9); Absolute Monocytes 0.4 K/uL (0.1-1.3); Absolute Neutrophil 7.8 K/uL (1.8-8.0); Basophils % 0.7 % (0-1.3); Eosinophils % 0.5 % (0-4.4); Hematocrit 41.6 % (36.0-45.0); Hemoglobin 14.9 g/dL (12.0-15.0); Lymphocytes % 18.1 % (15.3-44.8); MCHC 35.8 g/dL (32.0-36.0); MCV 89.4 fL (80-100); MPV 7.5 fL (7.6-11.3); Monocytes % 4.3 % (3.3-12.3); Neutrophils % 76.4 % (41.7-73.7); Nucleated Red Blood Cells % 0.1 % (0-0); Platelets 164 thou/uL (152-406); RBC Red Blood Cell Count 4.65 M/uL (3.86-4.86); Red Cell Distribution Width 13.3 % (12.1-15.2)
[2024-12-27 15:47] LABS: D-Dimer 0.223 FEUug/mL (0-0.500); PT Prothrombin Time 11.1 SECONDS (10-13.0); Protime INR 0.97
[2024-12-27 15:53] LABS: Influenza A Ag Negative; Influenza B Ag Negative; SARS-CoV-2 Antigen Rapid Res Negative (Negative)
[2024-12-27 16:02] LABS: ALT/SGPT 28 U/L (13-56); Albumin 2.9 g/dL (3.4-5.0); Albumin/Globulin Ratio 0.8 (1.1-1.8); Alkaline Phosphatase 80 U/L (45-117); Anion Gap 9.6 mEq/L (5.0-15.0); BUN Blood Urea Nitrogen 17 mg/dL (7-18); Bicarbonate 22 mEq/L (21-32); Bilirubin Total 0.5 mg/dL (0.2-1.0); Globulin 3.7 g/dL (2.3-3.5); Glomerular Filtration Rate 66 ml/min (=/>90); Glucose Level 367 mg/dL (74-106); NT PRO-BNP 182 pg/mL (<125); Protein, Total 6.6 g/dL (6.4-8.2); Sodium Level 132 mEq/L (136-145); Troponin High Sensitivity 4.3 pg/mL (<58.9)
[2024-12-27 16:03] LABS: AST/SGOT 15 U/L (15-37); Bilirubin Direct < 0.2 mg/dL (0-0.2); Bilirubin Indirect, Calculated 0.3 mg/dL (0.2-0.8); Magnesium 1.6 mg/dL (1.6-2.4); Potassium 3.6 mEq/L (3.5-5.1)
--- NOTE | 2024-12-27 17:05 | EDPHYS ---
Physician Documentation [facility] Name: Mary Bowden Age: 39 yrs Sex: Female : 1985 Arrival Date: 12/27/2024 Time: 13:00 Bed 20 Private MD: ED Physician Nadeem Nye HPI: 12/27 16:59 This 39 yrs old Female presents to ER via Ambulatory with complaints of Chest butch Pain, Cough, Congestion. 16:59 The patient or guardian reports chest pain that is located primarily in the anterior butch chest wall, bilaterally. The pain does not radiate. Associated signs and symptoms: Pertinent positives: cough. The chest pain is described as with cough. Modifying factors: The symptoms are alleviated by nothing. the symptoms are aggravated by cough. Severity of pain: At its worst the pain was moderate in the emergency department the pain is unchanged. The patient has not experienced similar symptoms in the past. [employer]OR [employer]OWER [employer]CTOR: 13:17 LMP 12/15/2024, unknown me1 Historical: - Allergies: 13:17 Diflucan; me1 13:17 flu vacine; me1 13:17 tramadol; me1 - PMHx: 13:17 Myocardial infarction; me1 - PSHx: 13:17 right ovary removed; Stented artery; me1 - Immunization history:: Adult Immunizations up to date. - Infectious Disease History:: Denies. - Social history:: Smoking status: Patient reports the use of cigarette tobacco products, smokes one pack cigarettes per day. Smoking status: Patient reports the use of cigarette tobacco products, smokes one-half pack cigarettes per day. - Family history:: not pertinent. ROS: 16:59 Constitutional: Negative for fever, chills, and weight loss, Eyes: Negative for injury, butch pain, redness, and discharge, ENT: Negative for injury, pain, and discharge, Neck: Negative for injury, pain, and swelling, Cardiovascular: Negative for chest pain, palpitations, and edema, Abdomen/GI: Negative for abdominal pain, nausea, vomiting, diarrhea, and constipation, Back: Negative for injury and pain, : Negative for injury, bleeding, discharge, and swelling, MS/Extremity: Negative for injury and deformity, Skin: Negative for injury, rash, and discoloration, Neuro: Negative for headache, weakness, numbness, tingling, and seizure, Psych: Negative for depression, anxiety, suicide ideation, homicidal ideation, and hallucinations, Allergy/Immunology: Negative for hives, rash, and allergies, Endocrine: Negative for neck swelling, polydipsia, polyuria, polyphagia, and marked weight changes, Hematologic/Lymphatic: Negative for swollen nodes, abnormal bleeding, and unusual bruising, 16:59 Respiratory: Positive for cough, "sounds productive", Exam: 16:59 Constitutional: This is a well developed, well nourished patient who is awake, alert, butch and in no acute distress. Head/Face: Normocephalic, atraumatic. Eyes: Pupils equal round and reactive to light, extra-ocular motions intact. Lids and lashes normal. Conjunctiva and sclera are non-icteric and not injected. Cornea within normal limits. Periorbital areas with no swelling, redness, or edema. ENT: Nares patent. No nasal discharge, no septal abnormalities noted. Tympanic membranes are normal and external auditory canals are clear. Oropharynx with no redness, swelling, or masses, exudates, or evidence of obstruction, uvula midline. Mucous membranes moist. Neck: Trachea midline, no thyromegaly or masses palpated, and no cervical lymphadenopathy. Supple, full range of motion without nuchal rigidity, or vertebral point tenderness. No Meningismus. Chest/axilla: Normal chest wall appearance and motion. Nontender with no deformity. No lesions are appreciated. Cardiovascular: Regular rate and rhythm with a normal S1 and S2. No gallops, murmurs, or rubs. Normal PMI, no JVD. No pulse deficits. Abdomen/GI: Soft, non-tender, with normal bowel sounds. No distension or tympany. No guarding or rebound. No evidence of tenderness throughout. Back: No spinal tenderness. No costovertebral tenderness. Full range of motion. Skin: Warm, dry with normal turgor. Normal color with no rashes, no lesions, and no evidence of cellulitis. MS/ Extremity: Pulses equal, no cyanosis. Neurovascular intact. Full, normal range of motion., bilateral aka Neuro: Awake and alert, GCS 15, oriented to person, place, time, and situation. Cranial nerves II-XII grossly intact. Motor strength 5/5 in all extremities. Sensory grossly intact. Cerebellar exam normal. Normal gait. Psych: Awake, alert, with orientation to person, place and time. Behavior, mood, and affect are within normal limits. 16:59 ECG was reviewed by the Attending Physician. Vital Signs: 13:15 BP 120 / 85; Pulse 93; Resp 17; Temp 98.7; Pulse Ox 98% ; Weight 104.33 kg; Height 6 me1 ft. 0 in. ; Pain 9/10; 16:59 BP 127 / 76; Pulse 91; Resp 18; Pulse Ox 99% on R/A; ld1 13:15 Body Mass Index 31.19 (104.33 kg, 182.88 cm) me1 13:15 Pain Scale: Adult me1 MDM: 13:19 Medical Screening Exam initiated butch 17:02 HEART Score: History: Slightly Suspicious (0). BEATRICE Risk Score: 1- Known CAD, TOTAL butch SCORE = 1. BEATRICE Risk Score: 1 - Three or more CAD risk factors, [Family Hx], [HTN], [Elevated Cholesterol], [DM], [Active Smoker]. Data reviewed: vital signs, nurses notes, lab test result(s), EKG, radiologic studies, plain films. Consideration of Admission/Observation Escalation of care including admission/observation considered. I considered the following discharge prescriptions or medication management in the emergency department Medications were administered in the Emergency Department. See MAR. Independent interpretation of the following test(s) in the Emergency Department EKG: See my EKG interpretation above. Test considered but Not performed: CT: no ct chest. Historians other than the Patient: pt well informed. Care significantly affected by the following chronic conditions: Diabetes, Hypertension, Obesity, tobacco abuse. 12/27 13:20 Order name: Basic Metabolic Panel; Complete Time: 16:49 12/27 13:20 Order name: CBC with Diff; Complete Time: 15:47 12/27 13:20 Order name: D-Dimer; Complete Time: 16:49 12/27 13:20 Order name: LFT's; Complete Time: 16:49 12/27 13:20 Order name: Magnesium; Complete Time: 16:49 12/27 13:20 Order name: NT PRO-BNP; Complete Time: 16:49 12/27 13:20 Order name: PT-INR; Complete Time: 16:49 12/27 13:20 Order name: Troponin HS; Complete Time: 16:49 [facility] 12/27 13:20 Order name: COVID-19 Ag + Flu A+B Ag; Complete Time: 16:49 [facility] 12/27 13:20 Order name: Test, Serum; Complete Time: 16:49 [facility] 12/27 13:20 Order name: XRAY Chest (1 view); Complete Time: 15:47 [facility] 12/27 13:20 Order name: Cardiac monitoring; Complete Time: 15:29 [facility] 12/27 13:20 Order name: EKG - Nurse/Tech; Complete Time: 15:29 [facility] 12/27 13:20 Order name: IV Saline Lock; Complete Time: 15:29 [facility] 12/27 13:20 Order name: Labs collected and sent; Complete Time: 15:29 [facility] 12/27 13:20 Order name: O2 Per Protocol; Complete Time: 15: [facility] 12/27 13:20 Order name: O2 Sat Monitoring; Complete Time: 15:29 butch EC:59 Rate is 86 beats/min. Rhythm is regular. QRS [place] is Normal. ID interval is normal. QRS butch interval is normal. QT interval is normal. No Q waves. T waves are Normal. No ST changes noted. Clinical impression: NSR w/ Non-specific ST/T Changes and No evidence of ischemia. Interpreted by me. Reviewed by me. Administered Medications: 15: Drug: NS 0.9% IV 1000 ml IV at 1 bolus Per protocol; to be given as a bolus over 60 ld1 minutes Route: IV; Rate: 1 bolus; Site: right antecubital; 17:00 Follow up: Response: No adverse reaction; IV Status: Completed infusion; IV Intake: ld1 1000ml 15:29 Drug: Aspirin PO Chewable Tablet 162 mg PO once Route: PO; ld1 17:00 Follow up: Response: No adverse reaction ld1 17:17 Drug: Insulin Glargine Sub-Q 25 units Sub-Q once {Co-Signature: cm10 (tati Arroyo RN).} Route: Sub-Q; Site: abdomen; 17:19 Drug: AZITHromycin PO 500 mg PO once Route: PO; ld1 17:19 Follow up: Response: No adverse reaction ld1 17:19 Drug: Insulin Regular Human IVP 10 units IVP once {Co-Signature: cm10 (tati Arroyo RN).} Route: IVP; Site: right antecubital; Disposition Summary: 12/27/24 17:04 Discharge Ordered Notes: Location: Home butch Problem: new butch Symptoms: have improved butch Condition: Stable butch Diagnosis - Chest pain, unspecified butch - Chest pain on breathing butch - Type 2 diabetes mellitus with hyperglycemia butch - Tobacco abuse counseling butch - Tobacco use butch Followup: butch - With: Private Physician - When: 1 - 2 days - Reason: Recheck today's complaints, Continuance of care, Re-evaluation by your physician Followup: butch - With: Balwinder Loredo MD - When: 2 - 3 days - Reason: Recheck today's complaints, Re-evaluation by your physician Discharge Instructions: - Discharge Summary Sheet butch - Nonspecific Chest Pain, Adult butch - Type 2 Diabetes Mellitus, Diagnosis, Adult butch - Hyperglycemia butch - Self-Destructive Behavior butch - Steps to Quit Smoking butch - Health Risks of Smoking butch - Supporting Someone With an Addiction butch - Nonspecific Chest Pain, Adult, [id number] butch - Diabetes Mellitus and Nutrition, Adult butch - Aspirin and Your Heart butch Forms: - Medication Reconciliation Form butch - Antibiotic Education butch - Prescription Opioid Use butch - Patient Portal Instructions butch - Leadership Thank You Letter butch - Work release form eb Prescriptions: - albuterol sulfate 90 mcg/actuation Inhalation HFA Aerosol Inhaler - inhale 2 puff INHALATION route every 4 to 6 hours as needed for shortness of butch breath or wheezing; 2 unit; Refills: 0, Product Selection Permitted - Tessalon Perles 100 mg Oral capsule - take 2 capsule ORAL route every 8 hours As needed; 30 capsule; Refills: 0, [facility] Product Selection Permitted - Metformin 850 mg Oral Tablet - take 1 tablet ORAL route 2 times per day with morning and evening meals; 20 butch tablet; Refills: 0, Product Selection Permitted - Zithromax 500 mg Oral Tablet - take 1 tablet ORAL route once daily for 5 days; 5 tablet; Refills: 0, Product [facility] Selection Permitted Signatures: Dispatcher [employer] EDNadeem Quiñonez MD MD cha Sims, Lauren RN RN ld1 Jennifer Tomlin RN RN me1 Mary Arroyo RN cm10 Corrections: (The following items were deleted from the chart) 13:20 13:20 BASIC METABOLIC PANEL+C.LAB.BRZ ordered. EDMS EDMS 13:20 13:20 CBC+H.LAB.BRZ ordered. EDMS EDMS 13:20 13:20 D-DIMER+COAG.LAB.BRZ ordered. EDMS EDMS 13:20 13:20 HEPATIC FUNCTION+C.LAB.BRZ ordered. EDMS EDMS 13:20 13:20 MAGNESIUM+C.LAB.BRZ ordered. EDMS EDMS 13:20 13:20 PROBNP+C.LAB.BRZ ordered. EDMS EDMS 13:20 13:20 PROTIME (+INR)+COAG.LAB.BRZ ordered. EDMS EDMS 13:20 13:20 Troponin High Sensitivity+C.LAB.BRZ ordered. EDMS EDMS 13:20 13:20 COVID-19 Ag + Flu A+B Ag+I.LAB.BRZ ordered. EDMS EDMS 13:20 13:20 TEST, SERUM+SC.LAB.BRZ ordered. EDMS EDMS 13:20 13:20 Chest Single View+RAD.RAD.BRZ ordered. EDMS EDMS
--- NOTE | 2024-12-27 17:05 | ER ---
Nurse's Notes [facility] Name: Mary Bowden Age: 39 yrs Sex: Female : 1985 Arrival Date: 12/27/2024 Time: 13:00 Bed 20 Private MD: Diagnosis: Chest pain, unspecified;Chest pain on breathing;Type 2 diabetes mellitus with hyperglycemia;Tobacco abuse counseling;Tobacco use Presentation: 12/27 13:15 Chief complaint: Patient states: midsternal chest pain that started a few days ago, me1 radiates to mid upper back, "stabbing" 05/12. Productive cough and congestion that started yesterday with Headache. Coronavirus screen: Vaccine status: Patient reports being unvaccinated. Ebola Screen: No symptoms or risks identified at this time. Initial Sepsis Screen: Does the patient meet any 2 criteria? HR > 90 bpm. Does the patient have a suspected source of infection? No. Patient's initial sepsis screen is negative. Risk Assessment: Do you want to hurt yourself or someone else? Patient reports no desire to harm self or others. Onset of symptoms is unknown. 13:15 Method Of Arrival: Ambulatory me1 13:15 Acuity: KAILEY 3 me1 WIRE CHARGER: 13:17 LMP 12/15/2024, unknown me1 Historical: - Allergies: 13:17 Diflucan; me1 13:17 flu vacine; me1 13:17 tramadol; me1 - PMHx: 13:17 Myocardial infarction; me1 - PSHx: 13:17 right ovary removed; Stented artery; me1 - Immunization history:: Adult Immunizations up to date. - Infectious Disease History:: Denies. - Social history:: Smoking status: Patient reports the use of cigarette tobacco products, smokes one pack cigarettes per day. Smoking status: Patient reports the use of cigarette tobacco products, smokes one-half pack cigarettes per day. - Family history:: not pertinent. Screenin:30 [facility] ED Fall Risk Assessment (Adult) History of falling in the last 3 months, ld1 including since admission No falls in past 3 months (0 pts) Confusion or Disorientation No (0 pts) Intoxicated or Sedated No (0 pts) Impaired Gait No (0 pts) Mobility Assist Device Used No (0 pt) Altered Elimination No (0 pt) Score/Fall Risk Level 0 - 2 = Low Risk Oriented to surroundings, Hourly rounding (assess needs \\T\\ fall precautionary measures) done. Abuse screen: Denies threats or abuse. Denies injuries from another. Nutritional screening: No deficits noted. Tuberculosis screening: No symptoms or risk factors identified. Assessment: 15:29 General: Appears in no apparent distress. comfortable, Behavior is calm, cooperative, ld1 appropriate for age. Pain: Complains of pain in chest Pain does not radiate. Pain currently is 7 out of 10 on a pain scale. Quality of pain is described as throbbing, Pain began suddenly, Is continuous. Neuro: Level of Consciousness is awake, alert, obeys commands, Oriented to person, place, time, situation. Cardiovascular: Capillary refill < 3 seconds Patient's skin is warm and dry. Rhythm is sinus rhythm. Respiratory: Airway is patent Respiratory effort is even, unlabored. GI: Abdomen is round non-distended. : No signs and/or symptoms were reported regarding the genitourinary system. EENT: No signs and/or symptoms were reported regarding the EENT system. Derm: No signs and/or symptoms reported regarding the dermatologic system. Musculoskeletal: No signs and/or symptoms reported regarding the musculoskeletal system. Vital Signs: 13:15 BP 120 / 85; Pulse 93; Resp 17; Temp 98.7; Pulse Ox 98% ; Weight 104.33 kg; Height 6 me1 ft. 0 in. ; Pain 9/10; 16:59 BP 127 / 76; Pulse 91; Resp 18; Pulse Ox 99% on R/A; ld1 13:15 Body Mass Index 31.19 (104.33 kg, 182.88 cm) me1 13:15 Pain Scale: Adult me1 ED Course: 13:15 Patient arrived in ED. cj3 13:17 Triage completed. me1 13:17 Arm band placed on Patient placed in waiting room. me1 13:18 Nadeem Nye MD is Attending Physician. [facility] 13:26 EKG done, by ED staff, reviewed by Nadeem Nye MD. me1 14:12 XRAY Chest (1 view) In Process Unspecified. EDMS 15:16 Alejandra Hood, RN is Primary Nurse. ld1 15:29 COVID-19 Ag + Flu A+B Ag Sent. ld1 15:29 Test, Serum Sent. ld1 15:30 Patient has correct armband on for positive identification. Placed in gown. Bed in low ld1 position. Call light in reach. Side rails up X2. Pulse ox on. NIBP on. pvc monitor on. Door closed. Noise minimized. Warm blanket given. 15:30 Inserted saline lock: 20 gauge in right antecubital area, using aseptic technique. ld1 Blood collected. Flushed with 10 mL NS. 17:04 Balwinder Loredo MD is Referral Physician. [facility] 17:42 No provider procedures requiring assistance completed. IV discontinued, intact, ld1 bleeding controlled, No redness/swelling at site. Administered Medications: 15:29 Drug: NS 0.9% IV 1000 ml IV at 1 bolus Per protocol; to be given as a bolus over 60 ld1 minutes Route: IV; Rate: 1 bolus; Site: right antecubital; 17:00 Follow up: Response: No adverse reaction; IV Status: Completed infusion; IV Intake: ld1 1000ml 15:29 Drug: Aspirin PO Chewable Tablet 162 mg PO once Route: PO; ld1 17:00 Follow up: Response: No adverse reaction ld1 17:17 Drug: Insulin Glargine Sub-Q 25 units Sub-Q once {Co-Signature: cm10 (tati Arroyo RN).} Route: Sub-Q; Site: abdomen; 17:19 Drug: AZITHromycin PO 500 mg PO once Route: PO; ld1 17:19 Follow up: Response: No adverse reaction ld1 17:19 Drug: Insulin Regular Human IVP 10 units IVP once {Co-Signature: cm10 (tati Arroyo RN).} Route: IVP; Site: right antecubital; Medication: 15:30 VIS not applicable for this client. ld1 Intake: 17:00 IV: 1000ml; Total: 1000ml. ld1 Outcome: 17:04 Discharge ordered by . butch 17:42 Discharged to home ambulatory, ld1 17:42 Condition: stable 17:42 Discharge instructions given to patient, Instructed on discharge instructions, follow up and referral plans. medication usage, Demonstrated understanding of instructions, follow-up care, medications, Prescriptions given X 4, 17:42 Patient left the ED. ld1 Signatures: Dispatcher [employer] Nadeem Tran MD MD cha Sims, Lauren RN RN ld1 Jennifer Tomlin RN RN me1 Ezekiel, Heydi cj3 Mary Arroyo RN cm10
[2024-12-27] MEDS ORDERED: AZITHROMYCIN 250 MG TAB ONE (17:11)
[2024-12-27] MEDS ORDERED: INSULIN REGULAR (HUMAN) 100 UNIT/ML ONE (17:12)
[2024-12-27] MEDS ORDERED: INSULIN GLARGINE 100 UNIT/ML SQ ONE (17:12)
--- NOTE | 2024-12-28 12:09 | EKG ---
Test Date: 2024-12-27 Test Time: 13:23:37 Polysomnography Technician: MEASUREMENT RESULTS: Intervals: Rate: 86 OK: 136 QRSD: 88 QT: 356 QTc: 426 [place]: P: 68 OK: 136 QRS: 77 T: 88 INTERPRETIVE STATEMENTS: Normal sinus rhythm Septal infarct, age undetermined Abnormal ECG Compared to ECG 07/24/2024 07:24:19 No significant changes Electronically Signed On 12-28-24 12:07:25 CDT by Zachary Curiel
[2024-12-29 06:40] VITALS: TEMP 98.7
[2024-12-29 06:42] VITALS: BP 127/76; O2SAT 99
== END 2024-12-27 17:42 | disposition home or self-care (01) ==
LOC: ER 13:00
DX: R07.1 Chest pain on breathing (principal); E11.65 Type 2 diabetes mellitus with hyperglycemia; Z72.0 Tobacco use; Z71.6 Tobacco abuse counseling; I25.2 Old myocardial infarction; Z11.52 Encounter for screening for COVID-19
CPT/HCPCS: 96361; 93005; 85025; 80048; 36415; 83735; 84703; 85610; 85379; 80076; 84484; 83880; 71045; 96372; 96374; 99285; 87428; J1815; J7030